=== PATIENT | male | born 1940 | race Caucasian/White ===

== ENCOUNTER 2017-01-14 07:59 | Inpatient (IN) | payer MEDICARE ==
[2017-01-14] MEDS ORDERED: Aspirin Low Dose CHEW TAB* 81 MG PO ONE (08:06)
[2017-01-14] MEDS ORDERED: NS 0.9% 1000 ML* 1,000 ML IV ONE (08:07)
[2017-01-14] MEDS ORDERED: Diltiazem IV* 5 MG/ML 5 ML VIAL (for loading dose/IV Push) (25 MG) IV SLOW PU ONE (08:20)
[2017-01-14] MEDS ORDERED: Diltiazem IV VIAL* 125 MG in D5W 100 ML BAG* 100 ML IV ONE (08:20)
--- NOTE | 2017-01-14 08:33 | RAD ---
HISTORY: Chest pain COMPARISONS: October 06, 2005 VIEWS:1: Single frontal portable view of the chest at 8:20 AM FINDINGS: LINES AND TUBES: None. CARDIOMEDIASTINAL SILHOUETTE: The cardiomediastinal silhouette is normal for portable technique. PLEURA: The costophrenic angles are sharp. No pleural abnormalities are noted. LUNG PARENCHYMA: The lungs are clear. ABDOMEN: The upper abdomen is clear. There is no subphrenic gas. BONES AND SOFT TISSUES: No bone or soft tissue abnormalities are noted. IMPRESSION: NO ACTIVE CARDIOPULMONARY DISEASE.
[2017-01-14 08:34] LABS: Hematocrit 46 % (42-52); Hemoglobin 15.9 g/dl (14.0-18.0); Mean Corpuscular HGB Conc 35 g/dl (31-36); Mean Corpuscular Hemoglobin 31 pg (27-31); Mean Corpuscular Volume 91 fL (80-94); Mean Platelet Volume 10 um3 (7.4-10.4); Red Blood Count 5.06 10^6/ul (4.0-5.4); Red Cell Distribution Width 13 % (10.5-15); White Blood Count 13.3 10^3/ul (3.5-10.8)
[2017-01-14] MEDS ORDERED: Diltiazem IV VIAL* 125 MG/25 ML VIAL ONE (08:37)
[2017-01-14 08:52] LABS: Albumin 4.3 g/dL (3.2-5.2); BUN/Creatinine Ratio 15.9 (8-20); Calcium 9.6 mg/dL (8.6-10.3); EGFR African American 86.9 (>60); EGFR Non-African American 67.6 (>60); Globulin 3.3 g/dL (2-4); Potassium 3.8 mmol/L (3.5-5.0); Total Bilirubin 1.5 mg/dL (0.2-1.0); Total Protein 7.6 g/dL (6.4-8.9)
[2017-01-14 09:44] LABS: TSH (Thyroid Stimulating Horm) 1.87 mcIU/mL (0.34-5.60)
--- NOTE | 2017-01-14 09:47 | ED ---
Tony Mukherjee Anna, scribed for Caitie Osborn MD on 01/14/17 at 0817 . HPI Chest Pain - HPI Summary HPI Summary: Patient is a y/o male coming to [facility] presenting with intermittent right-sided chest pressure that began a few days ago. The pain was worse beginning last night. He was not able to sleep last night because of the pain. The pain is described as severity 8/10 and sometimes radiating to the right side of his neck. The pain is somewhat alleviated by belching. He has not had pain like this before. He denies Hx of heart attack. These symptoms do not feel similar to his GERD, which normally does not extend into his chest. He says his heart does not feel fast, and he has no history of atrial fibrillation. - History of Current Complaint Chief Complaint: EDChestPainROMI Time Seen by Provider: 01/14/17 08:06 Hx Obtained From: Patient, Family/Tick Sewer - Accompanied by family Onset/Duration: Started Days Ago, Still Present Pain Intensity: 8 Pain Scale Used: 0-10 Numeric Chest Pain Radiates: Yes Chest Pain Radiates To:: Neck - right side of neck Alleviating Factor(s): Other: - belching - Allergy/Home Medications Allergies/Adverse Reactions: Allergies Allergy/AdvReac Type Severity Reaction Status Date / Time No Known Allergies Allergy Verified 01/14/17 08:01 PMH/Surg Hx/FS Hx/Imm Hx Cardiovascular History: Reports: Hx Coronary Artery Disease - MILD, BLOCKAGE, ON MEDS, Hx Hypercholesterolemia, Hx Hypertension Denies: Other Cardiovascular Problems/Disorders Respiratory History: Denies: Other Respiratory Problems/Disorders GI History: Reports: Hx Ulcer - 1983, HAD PARTIAL STOMACH REMOVED Musculoskeletal History: Denies: Other Musculoskeletal History Sensory History: Reports: Hx Contacts or Glasses - GLASSES Denies: Hx Hearing Aid Opthamlomology History: Reports: Hx Contacts or Glasses - GLASSES Neurological History: Denies: Other Neuro Impairments/Disorders - Surgical History Surgery Procedure, Year, and Place: 1983, [place] [facility] [place] 2 [place]IAL [place], 02[place]2012, [place] [facility] [place] Anesthesia Reactions: No Infectious Disease History: No Infectious Disease History: Denies: Traveled Outside the [place] in Last 30 Days - Family History Known Family History: Positive: Hypertension - Social History Occupation: Retired Lives: Alone Alcohol Use: None Substance Use Type: Reports: None Smoking Status (MU): Never Smoked Tobacco Review of Systems Positive: Chest Pain - pressure Positive: Arthralgia - right neck pain All Other Systems Reviewed And Are Negative: Yes Physical Exam Triage Information Reviewed: Yes Vital Signs On Initial Exam: Initial Vitals Temp Pulse Resp BP Pulse Ox 99.3 F 126 18 133/108 97 01/14/17 08:01 01/14/17 08:01 01/14/17 08:01 01/14/17 08:01 01/14/17 08:01 Vital Signs Reviewed: Yes Appearance: Positive: Well-Appearing, No Pain Distress Skin: Positive: Warm, Skin Color Reflects Adequate Perfusion, Dry Eyes: Positive: EOMI, RESHMA ENT: Positive: Pharynx normal, TMs normal Neck: Positive: Supple, Nontender Respiratory/Lung Sounds: Positive: Clear to Auscultation, Breath Sounds Present. Negative: Rales, Rhonchi, Wheezes Cardiovascular: Positive: IRR. Negative: Murmur, Rub, Other - gallop Abdomen Description: Positive: Nontender, Soft. Negative: Distended, Guarding, Other: - rebound Bowel Sounds: Positive: Present Musculoskeletal: Positive: Strength/ROM Intact. Negative: Edema Left, Edema Right Neurological: Positive: Sensory/Motor Intact, Alert, Oriented to Person Place, Time, CN Intact II-III - II-XII Psychiatric: Positive: Affect/Mood Appropriate Diagnostics - Vital Signs Vital Signs Temp Pulse Resp BP Pulse Ox 01/14/17 08:01 99.3 F 126 18 133/108 97 - Laboratory Lab Results: Lab Results 01/14/17 01/14/17 01/14/17 Range/Units 08:15 08:15 08:15 WBC 13.3 H (3.5-10.8) 10^3/ul RBC 5.06 (4.0-5.4) 10^6/ul Hgb 15.9 (14.0-18.0) g/dl Hct 46 (42-52) % MCV 91 (80-94) fL MCH 31 (27-31) pg MCHC 35 (31-36) g/dl RDW 13 (10.5-15) % Plt Count 180 (150-450) 10^3/ul MPV 10 (7.4-10.4) um3 Neut % (Auto) 76.9 (38-83) % Lymph % (Auto) 11.2 L (25-47) % [place] % (Auto) 11.1 H (1-9) % Eos % (Auto) 0.3 (0-6) % Baso % (Auto) 0.5 (0-2) % Absolute Neuts (auto) 10.2 H (1.5-7.7) 10^3/ul Absolute Lymphs (auto) 1.5 (1.0-4.8) 10^3/ul Absolute Monos (auto) 1.5 H (0-0.8) 10^3/ul Absolute Eos (auto) 0 (0-0.6) 10^3/ul Absolute Basos (auto) 0.1 (0-0.2) 10^3/ul Absolute Nucleated RBC 0.01 10^3/ul Nucleated RBC % 0.1 Sodium 133 (133-145) mmol/L Potassium 3.8 (3.5-5.0) mmol/L Chloride 101 (101-111) mmol/L Carbon Dioxide 23 (22-32) mmol/L Anion Gap 9 (2-11) mmol/L BUN 17 (6-24) mg/dL Creatinine 1.07 (0.67-1.17) mg/dL Est GFR ( Amer) 86.9 (>60) Est GFR (Non-Af Amer) 67.6 (>60) BUN/Creatinine Ratio 15.9 (8-20) Glucose 152 H (70-100) mg/dL Lactic Acid 1.1 (0.5-2.0) mmol/L Calcium 9.6 (8.6-10.3) mg/dL Magnesium Pending Total Bilirubin 1.50 H (0.2-1.0) mg/dL AST 29 (13-39) U/L ALT 22 (7-52) U/L Alkaline Phosphatase 104 (34-104) U/L Troponin I 0.00 (<0.04) ng/mL Total Protein 7.6 (6.4-8.9) g/dL Albumin 4.3 (3.2-5.2) g/dL Globulin 3.3 (2-4) g/dL Albumin/Globulin Ratio 1.3 (1-3) TSH 1.87 (0.34-5.60) mcIU/mL Result Diagrams: 01/14/17 08:15 01/14/17 08:15 Lab Statement: Any lab studies that have been ordered have been reviewed, and results considered in the medical decision making process. - Radiology CXR Xray Interpretation: No Acute Changes Radiology Interpretation Completed By: Radiologist - IMPRESSION: NO ACTIVE CARDIOPULMONARY DISEASE. - EKG 0808 Cardiac Rate: Tachycardia - 121 bpm EKG Rhythm: Atrial Fibrillation EKG Interpretation: Mild, non-specific T-wave changes EKG Comparison: Other - No old EKG available for comparison. Re-Evaluation - Re-Evaluation First Eval Re-Evaluation Time: 08:57 Comment: Discussed results and plan of care with patient. Patient agrees with plan. Chest Pain Course/Dx - Course Assessment/Plan: pt came in with right sided cp for 48 hours, in new rapid afib. Pt slowed down with diltiazem ok to be admitted by hospitalist group - Diagnoses Provider Diagnoses: Rapid atrial fibrillation, Chest pain - Provider Notifications Discussed Care Of Patient With: Dr. Joseph (hospitalist) at 0900. Agrees to accept patient for admission. Discharge - Discharge Plan Condition: Stable Disposition: ADMITTED TO [facility] documentation as recorded by the Tony daniels Anna accurately reflects the service I personally performed and the decisions made by me, Caitie Osborn MD.
[2017-01-14 09:52] LABS: Magnesium 2.2 mg/dL (1.9-2.7)
[2017-01-14] MEDS ORDERED: Diltiazem IV VIAL* 125 MG in D5W 100 ML BAG* 100 ML IV SCH ×3 (10:00→19:39)
[2017-01-14] MEDS ORDERED: Metoprolol Succinate XL TAB* 25 MG PO SCH (12:00)
[2017-01-14] MEDS ORDERED: Metoprolol Tartrate IV* 1 MG/ML 5 ML VIAL IV PRN (12:04)
[2017-01-14] MEDS ORDERED: Metoprolol Tartrate IV* 1 MG/ML 5 ML VIAL IV STA (12:07)
--- NOTE | 2017-01-14 12:18 | HP ---
CONTINUATION ADDENDUM NOW INCLUDED ON THIS REPORT HISTORY AND PHYSICAL: DATE OF ADMISSION: 01/14/17 TIME OF EVALUATION: 10:50 a.m. PRIMARY CARE PROVIDER: Dr. Currie. TOP LIFT NAILER: Dr. Quispe. CHIEF COMPLAINT: Chest pressure. HISTORY OF PRESENT ILLNESS: Mr. Guevara is a 76-year-old male with a past medical history of coronary artery disease, hypertension, hyperlipidemia, melanoma, peptic ulcer disease, status post partial gastrectomy, who presented to the emergency room with complaints of chest pressure. The patient states he was in his usual state of health until 3 days ago when he started to experience mild right-sided chest pressure. He states that initially it was 2/10 in intensity with no radiation and it resolved by itself. The patient is on a very intense gym regimen and he states that he was able to exercise with no problems three days ago. The chest pressure resolved and yesterday he went to the gym but noticed that he could not do his whole set. He was able to exercise with less weight, was still able to walk on the treadmill for 30 minutes but felt weak. Overnight, the chest pressure returned and at this time it was severe, 10/10 intensity, radiating to his neck associated with mild dyspnea and diaphoresis. He called his daughter and was brought into the emergency room for further evaluation. He denies fever, chills, palpitations, any other complaints. He has no recent trips. No recent trauma. PAST MEDICAL HISTORY: Coronary artery disease. As per records, he had the cardiac cath done in September 2005 that showed inferior hypokinesis and occluded non- dominant RCA, diffuse moderate disease of the LAD, moderate disease of the left circumflex and high marginal had 45% to 50% stenosis. CONTINUATION ADDENDUM: DATE OF ADMISSION: 01/14/17 PAST MEDICAL HISTORY: 1. Coronary artery disease. 2. Hypertension. 3. Hyperlipidemia. 4. History of peptic ulcer disease, status post partial gastrectomy in 1982 with upper GI bleed at that time but no further episodes of upper GI bleed for the past 30 years. 5. Melanoma, status post multiple skin lesions resection. MEDICATIONS: 1. Aspirin 81 mg p.o. daily. 2. Atorvastatin 80 mg p.o. daily. 3. Lisinopril 5 mg p.o. daily. 4. Metoprolol succinate 25 mg p.o. b.i.d. 5. Multivitamin 1 tablet p.o. daily. 6. Pantoprazole 40 mg p.o. daily. 7. Potassium chloride 20 mEq p.o. daily. ALLERGIES: No known drug allergy. FAMILY HISTORY: Father had coronary artery disease in his 70s. SOCIAL HISTORY: The patient was a smoker from age 17 to age 46. He smoked 1 pack per day. Alcohol, he has 1 to 2 alcoholic drinks a week. He denies drug use. He drinks 2 cups of regular coffee every day. Surrogate decision maker is his daughter, Holly Agrawal, phone number [phone]. REVIEW OF SYSTEMS: A 14-point review of systems was performed and all the pertinent negatives and positives are mentioned in the HPI. PHYSICAL EXAMINATION GENERAL: The patient is a pleasant elderly male, sitting up in bed in no acute distress. VITAL SIGNS: Temperature 100.1, respiratory rate 18, heart rate is 95, oxygen saturation is 95% on room air, blood pressure is 122/73. CHEST: Breath sounds present bilaterally with no added sounds. CVS: Normal S1, S2. Irregularly irregular, tachycardic. ABDOMEN: Soft with a midline surgical scar and other two smaller ones on the left lower quadrant. There is no tenderness on palpation. Bowel sounds are present. EXTREMITIES: No edema. NEUROLOGIC: He is alert, awake, oriented x3. Able to move all 4 extremities. DIAGNOSTIC STUDIES/LAB DATA: The patient had a CBC that showed WBC of 13.3, hemoglobin of 15.9, hematocrit of 46, platelets of 180, 76% neutrophils. Chemistry showed sodium of 133, potassium 3.8, chloride 101, bicarbonate 23, BUN 17, creatinine of 1.07, glucose of 152, lactic acid of 1.1. LFTs were normal except for a mild elevation of bilirubin at 1.5. First troponin is 0. TSH is 1.87. Chest x-ray showed no active cardiopulmonary disease. EKG done on 01/14/17 at 8 :08 showed atrial fibrillation at 121 beats per minute. There is no prior EKG to compare. ASSESSMENT AND PLAN: Mr. Guevara is a 76-year-old male with the past medical history of coronary artery disease, hypertension, hyperlipidemia, prior history of peptic ulcer disease, status post partial gastrectomy who presented to the emergency room with complaints of chest pressure and was found to be in atrial fibrillation with rapid ventricular rate. 1. Atrial fibrillation with rapid ventricular rate. The time of onset is unclear as the patient does not feel palpitations now, even though his heart rate can jump to 140s to 150s during our interview. He will be admitted to the telemetry floor. He will be continued on a Cardizem drip and a Cardiology consultation was requested with Dr. Quispe. An echocardiogram was ordered. After reviewing the risks and benefits, decision was made for anticoagulation with Lovenox at this point until further decision regarding cardioversion. The patient's CHADS2-VASc score is 3 (age, hypertension, history of myocardial infarction). 2. Hypertension. We will continue metoprolol and hold lisinopril for now to have more room for Cardizem drip. 3. Hyperlipidemia. We will continue atorvastatin but at a lower dose due to Cardizem. 4. DVT prophylaxis. The patient has a score of 2 on the DVT Prophylaxis Risk Assessment Guide and he is already started on Lovenox. 5. Code status is full. TIME SPENT: Approximately 60 minutes were spent with the patient and family interview, medical records review, physical examination to complete this admission and more than half of this time was spent [id number] with the patient and coordination of care. CC: Dr. Currie; Dr. Quispe* [id number]/[facility] #: [id number]/CPS #: [id number] AXEL
[2017-01-14] MEDS: Enoxaparin(*) 80 MG/0.8 ML SYR SUBCUT SCH (12:32)
[2017-01-14] MEDS: KCL 10 MEQ/50 ML IVPREMIX* 10 MEQ/50 ML BAG IV SCH ×2 (14:13→21:34)
[2017-01-14] MEDS ORDERED: Naloxone* 0.4 MG/ML 1 ML VIAL ONE (15:40)
[2017-01-14] MEDS ORDERED: Flumazenil* 0.1 MG/ML 5 ML MDV ONE (15:40)
[2017-01-14] MEDS ORDERED: fentaNYL* 50 MCG/ML 2 ML VIAL (100 MCG VIAL) ONE (15:40)
[2017-01-14] MEDS ORDERED: Midazolam* 1 MG/ML 5 ML VIAL (5 MG) ONE (15:40)
--- NOTE | 2017-01-14 15:43 | HP ---
HISTORY AND PHYSICAL:* ADDENDUM: DATE OF ADMISSION: 01/14/17 PAST MEDICAL HISTORY: 1. Coronary artery disease. 2. Hypertension. 3. Hyperlipidemia. 4. History of peptic ulcer disease, status post partial gastrectomy in 1982 with upper GI bleed at that time but no further episodes of upper GI bleed for the past 30 years. 5. Melanoma, status post multiple skin lesions resection. MEDICATIONS: 1. Aspirin 81 mg p.o. daily. 2. Atorvastatin 80 mg p.o. daily. 3. Lisinopril 5 mg p.o. daily. 4. Metoprolol succinate 25 mg p.o. b.i.d. 5. Multivitamin 1 tablet p.o. daily. 6. Pantoprazole 40 mg p.o. daily. 7. Potassium chloride 20 mEq p.o. daily. ALLERGIES: No known drug allergy. FAMILY HISTORY: Father had coronary artery disease in his 70s. SOCIAL HISTORY: The patient was a smoker from age 17 to age 46. He smoked 1 pack per day. Alcohol, he has 1 to 2 alcoholic drinks a week. He denies drug use. He drinks 2 cups of regular coffee every day. Surrogate decision maker is his daughter, Holly Agrawal, phone number [phone]. REVIEW OF SYSTEMS: A 14-point review of systems was performed and all the pertinent negatives and positives are mentioned in the HPI. PHYSICAL EXAMINATION GENERAL: The patient is a pleasant elderly male, sitting up in bed in no acute distress. VITAL SIGNS: Temperature 100.1, respiratory rate 18, heart rate is 95, oxygen saturation is 95% on room air, blood pressure is 122/73. CHEST: Breath sounds present bilaterally with no added sounds. CVS: Normal S1, S2. Irregularly irregular, tachycardic. ABDOMEN: Soft with a midline surgical scar and other two smaller ones on the left lower quadrant. There is no tenderness on palpation. Bowel sounds are present. EXTREMITIES: No edema. NEUROLOGIC: He is alert, awake, oriented x3. Able to move all 4 extremities. DIAGNOSTIC STUDIES/LAB DATA: The patient had a CBC that showed WBC of 13.3, hemoglobin of 15.9, hematocrit of 46, platelets of 180, 76% neutrophils. Chemistry showed sodium of 133, potassium 3.8, chloride 101, bicarbonate 23, BUN 17, creatinine of 1.07, glucose of 152, lactic acid of 1.1. LFTs were normal except for a mild elevation of bilirubin at 1.5. First troponin is 0. TSH is 1.87. Chest x-ray showed no active cardiopulmonary disease. EKG done on 01/14/17 at 8 :08 showed atrial fibrillation at 121 beats per minute. There is no prior EKG to compare. ASSESSMENT AND PLAN: Mr. Guevara is a 76-year-old male with the past medical history of coronary artery disease, hypertension, hyperlipidemia, prior history of peptic ulcer disease, status post partial gastrectomy who presented to the emergency room with complaints of chest pressure and was found to be in atrial fibrillation with rapid ventricular rate. 1. Atrial fibrillation with rapid ventricular rate. The time of onset is unclear as the patient does not feel palpitations now, even though his heart rate can jump to 140s to 150s during our interview. He will be admitted to the telemetry floor. He will be continued on a Cardizem drip and a Cardiology consultation was requested with Dr. Quispe. An echocardiogram was ordered. After reviewing the risks and benefits, decision was made for anticoagulation with Lovenox at this point until further decision regarding cardioversion. The patient's CHADS2-VASc score is 3 (age, hypertension, history of myocardial infarction). 2. Hypertension. We will continue metoprolol and hold lisinopril for now to have more room for Cardizem drip. 3. Hyperlipidemia. We will continue atorvastatin but at a lower dose due to Cardizem. 4. DVT prophylaxis. The patient has a score of 2 on the DVT Prophylaxis Risk Assessment Guide and he is already started on Lovenox. 5. Code status is full. TIME SPENT: Approximately 60 minutes were spent with the patient and family interview, medical records review, physical examination to complete this admission and more than half of this time was spent [id number] with the patient and coordination of care. [id number]/[facility] #: [id number] AXEL
[2017-01-14] MEDS ORDERED: Ketorolac INJ* 30 MG/ML 1 ML VIAL ONE (15:59)
--- NOTE | 2017-01-14 16:26 | CONS ---
CC: Dr. Currie; Lloyd Quispe MD CONSULTATION REPORT: DATE OF CONSULTATION: 01/14/17 CONSULTING PHYSICIAN: Dr. Cuadra. REASON FOR EVALUATION: AFib. HISTORY OF PRESENT ILLNESS: This is a very pleasant 76-year-old gentleman who is known to me from previous evaluations. He has a longstanding history of coronary artery disease, hypertension, hyperlipidemia. He has been very active and exercising, was in his usual state of health until about 2 days ago. He noted intermittent achiness in his right chest, which was not associated with diaphoresis but was associated with some gas. No relief with passing gas. He states it could occur at rest, when sitting and would last for up to an hour at a time. He said he tried to do his treadmill exercises which is a standard activity for him. He said he slowed his pace and did up to 35 minutes yesterday. Normally he walks at highest setting and higher inclination, but he did at a slower pace. He stated he went to bed last night, was still having the symptoms. He woke up this morning, was having symptoms, called his daughter and they came to the emergency room and he was found to be in AFib with a rapid ventricular response. He was started on IV diltiazem. He states he feels better, but he still has some mild persistent discomfort. He said his troponin first drawn was 0. He denies associated shortness of breath or diaphoresis. No change with position. No hematemesis, hematochezia. No fevers , chills, or sweats. Up until 2 days ago, he was exercising regularly, doing treadmill work for 30 minutes at a time most days and going to the [employer] and doing exercises and weight machines for 2 times a week. He states normally he gets heart rate up to about the 114 range with exercise on the treadmill. PAST MEDICAL HISTORY: His past medical history includes coronary artery disease. He had a cardiac catheterization done in September 2005, which showed inferior hypokinesis and occluded non-dominant right diffuse LAD, moderate disease, left circumflex with moderate disease and high marginal with moderate disease 45% to 50%. In March 2006, he had anterior lateral wall ischemia by nuclear stress test. He had a stress test in November 2010 and at that time was able to complete 9 minutes of a Fredy to 104% max predicted, peak blood pressure 185/83, he had 1 to [address] depressions inferiorly in V6. Peak heart rate, which recovered within 2 minutes. He has been managed medically and has done well. He also has a history of hypertension, hyperlipidemia, tobacco use discontinued 30 years ago. He denies asthma, emphysema. Denies any allergies. PAST SURGICAL HISTORY: Includes ulcer surgery for gastric resection, 1982. He is . He has 3 adult children, 2 daughters Yamilka and Natividad who accompany him and 1 son. He drinks 2 cups of coffee a day and he has 1 mixed drink about once or twice a month. He was retired from the [employer]. He retired about 10 years ago. ROS x 10 negative except as above. PHYSICAL EXAM: He is a well-developed, well-nourished gentleman in no apparent distress. Heart rate was irregularly irregular and varied from the 90s to the 120s. Blood pressure 122/73. Atraumatic, normocephalic. Extraocular muscles intact. Sclerae anicteric. No significant JVD. No cervical adenopathy or thyromegaly. Cardiac Exam: S1, S2 with a soft 1 to 2/6 holosystolic murmur at the left lower sternal border. Chest was clear. No CVAT. There were bandages where he had recent skin lesion resected. Abdomen: Bowel sounds present. Nontender. Femoral pulses are intact without bruits. Distal pulses are intact without edema. Motor strength 5/5 bilaterally. Deep tendon reflexes are 2/4. Alert and oriented x3. DIAGNOSTIC STUDIES/LAB DATA: EKG revealed atrial fibrillation with a rapid ventricular response with small Q-waves inferiorly, possible inferior ND, old inferior ND and ST depression, T-wave inversions in 2, 3 and F. Labs include white count mildly elevated at 13.3, hematocrit of 46, platelet count 180. Sodium 133, potassium is 3.8, BUN is 70, creatinine of 1.07. Troponin 0.0 and then 0.01. Chest x-ray is negative. IMPRESSION AND PLAN: My impression is that Mr. Guevara has history of coronary disease, hypertension, hyperlipidemia, now has 2 days of unclear symptoms and found to be in atrial fibrillation. Onset is based on his vital signs calculations and heart rates, it seems as though it started about 2 days ago. We did discuss at length the diagnosis and implications including potential risk for stroke and poor heart rate control. We also explained the importance of screening for other possible causes including progression of his LV dysfunction and ischemic heart disease. For the time being, I recommend the followin. I suggest to continue rate control with IV diltiazem and perhaps adding IV Lopressor as needed. 2. He is to remain n.p.o. for possible KALLIE-guided cardioversion later today. He finished breakfast a little before 11, so we will have to wait until late afternoon. 3. He is to avoid caffeine and alcohol, which may lower the threshold for this. We will try to replace the potassium and maintain it over 4. 4. We will consider obtaining outpatient stress test if his troponins remain negative as they are. 5. Further recommendations will depend upon his clinical course. He understands that the range of options for treatment of his atrial fibrillation range from conservative management with just rate control versus attempted cardioversion versus need for pacemaker for tachy-gabby syndrome as well as more advanced interventions. [id number]/[facility] #: [id number] AXEL
--- NOTE | 2017-01-14 17:17 | CONS ---
CONSULTATION NOTE: ADDENDUM: DATE OF CONSULTATION: 01/14/17 MEDICATIONS: As an inpatient, he is on IV diltiazem at 15 mL an hour and he is on metoprolol 25 mg b.i.d. of the long acting. As an inpatient, he is also on Lovenox 70 mg subcu q.12, atorvastatin 40 mg a day, aspirin 81 mg a day, omeprazole 20 mg a day, potassium 20 mEq daily. Review of systems x10 was negative except as above. He also did not have recent travel, leg edema or injuries. [id number]/[facility] #: [id number] [facility]
[2017-01-14] MEDS ORDERED: Metoprolol Tartrate IV* 1 MG/ML 5 ML VIAL ONE (17:33)
[2017-01-14] MEDS ORDERED: Amiodarone IV VIAL* 3 ML ONE (17:37)
[2017-01-14] MEDS ORDERED: D5W 100 ML BAG* 100 ML ONE (20:15)
--- NOTE | 2017-01-14 20:18 | TEE ---
Patient: TREY DANIELS [facility] Rec#: [id number] : 1940 Date: 01/14/2017 Age: 76y Height: 160 cm / 63.0 in Weight: 70.3 kg / 154.9 lbs Sex: M BSA: 1.7 Room#: 434 Admit Date#: 01/14/2017 Type: Inpatient Referring: Lloyd Quispe MD Performing: Lloyd Quispe MD Reading: Lloyd Quispe MD Master Sheet Clerk: Micheline Atkins RN RDCS Nurse: Pranav Hernandez RN CC: Leonard Currie MD Transesophageal Echocardiogram Indication: Atrial fibrillation BP: 109/66 HR: 109 Rhythm: A-Fib Findings History: CAD, HTN, HLD Technical Comments: The study quality is fair. Left Ventricle: The left ventricular chamber size is normal. Global left ventricular wall motion and contractility are within normal limits. There is normal left ventricular systolic function. The estimated ejection fraction is 55-60%. Left Atrium: The left atrium is mildly dilated. No thrombus is visualized within the left atrium. There is no thrombus visualized in the left atrial appendage. Right Ventricle: The right ventricular cavity size is normal. The right ventricular global systolic function is normal. Right Atrium: The right atrial cavity size is normal. A prominent eustachian valve is noted in the right atrium. A patent foramen ovale is not demonstrated by color Doppler. No bubble study performed. Aortic Valve: The aortic valve is trileaflet. The aortic valve leaflets are mildly thickened. There is no evidence of aortic regurgitation. There is no evidence of aortic stenosis. Mitral Valve: The mitral valve leaflets are mildly thickened. There is mild mitral regurgitation. There is no evidence of mitral stenosis. Tricuspid Valve: The tricuspid valve leaflets are normal. There is mild tricuspid regurgitation. Pulmonic Valve: The pulmonic valve structure is not well visualized. There is trace to mild pulmonic regurgitation. Pericardium: There is no significant pericardial effusion. Aorta: There is no dilatation of the ascending aorta. There is mild dilatation of the aortic root. Pulmonary Artery: The main pulmonary artery is not well visualized. Venous: The bicaval view was obtained and appears normal. The pulmonary veins appear normal. The LUPV was well visualized and interrogated with Doppler. KALLIE Procedures: The procedure was abbreviated due to the patient's medical condition. Transgastric and aortic views were not obtained due to the patient's gagging. History and physical as well as labs were reviewed. The patient was in a fasting state. Risks and benefits of the procedure, including alternatives, were discussed and written informed consent was obtained. The patient and/or their health care advertising account representative expressed understanding of the procedure, risks and benefits. Baseline and continuous monitoring of blood pressure, heart rate, pulse oximetry and heart rhythm was performed throughout the procedure. The appropriate time-out procedure was performed as per [facility] protocol. The patient was placed in the left lateral decubitus position. The patient received IV Midazolam with a total dose of 4 mg. The patient received IV Fentanyl with a total dose of 25 mcg. The multiplane transesophageal echocardiogram probe was inserted through the posterior oropharynx and advanced into the esophagus without difficulty. Multiple 2D images were obtained of the heart and its related structures. Color flow Doppler was used for evaluation. Spectral Doppler was also used. The atrial septum was interrogated with color flow Doppler. At the conclusion of the procedure the probe was removed with continuous suction without complications. The patient tolerated the procedure with no apparent complications. Conclusions The estimated ejection fraction is 55-60%. The left atrium is mildly dilated.. There is no thrombus visualized in the left atrial appendage. The aortic valve leaflets are mildly thickened. There is mild mitral regurgitation. There is mild tricuspid regurgitation. There is trace to mild pulmonic regurgitation. Measurements Name Value Normal Range Aortic Annulus 2.3 cm (1.4 - 2.6) Ao root diameter (2D) 3.6 cm (2.1 - 3.5) Ascending Ao 2.6 cm (2.1 - 3.4) Name Value Normal Range MV E-wave Vmax 1.1 m/sec - MV deceleration time 111 msec -
[2017-01-14] MEDS: Sotalol TAB* 80 MG PO SCH (20:24)
[2017-01-14] MEDS: Atorvastatin* 40 MG TAB PO SCH (20:25)
[2017-01-14] MEDS ORDERED: Potassium Chloride LIQUID* 20 MEQ PACKET PO ONE (20:31)
[2017-01-15] MEDS: Acetaminophen TAB* 325 MG PO PRN (00:01)
[2017-01-15] MEDS: Enoxaparin(*) 80 MG/0.8 ML SYR SUBCUT SCH ×3 (00:04→22:51)
[2017-01-15 02:06] LABS: Urine Bacteria Absent (Absent); Urine Bilirubin Negative (Negative); Urine Glucose Negative (Negative); Urine Nitrite Negative (Negative)
[2017-01-15 06:50] LABS: BUN/Creatinine Ratio 21.8 (8-20); Calcium 8.7 mg/dL (8.6-10.3); EGFR African American 76.9 (>60); EGFR Non-African American 59.8 (>60); Magnesium 2.1 mg/dL (1.9-2.7); Potassium 4.5 mmol/L (3.5-5.0)
[2017-01-15] MEDS ORDERED: Diltiazem IV VIAL* 125 MG in D5W 100 ML BAG* 100 ML IV SCH (07:15)
[2017-01-15] MEDS: Potassium Chloride LIQUID* 20 MEQ PACKET PO SCH (07:33)
[2017-01-15] MEDS: Sotalol TAB* 80 MG PO SCH ×2 (07:34→22:54)
[2017-01-15] MEDS: Aspirin Low Dose CHEW TAB* 81 MG PO SCH (07:34)
[2017-01-15] MEDS: Omeprazole CAP* 20 MG PO SCH (07:35)
[2017-01-15 07:57] LABS: Hematocrit 44 % (42-52); Hemoglobin 14.8 g/dl (14.0-18.0); Mean Corpuscular HGB Conc 34 g/dl (31-36); Mean Corpuscular Hemoglobin 31 pg (27-31); Mean Corpuscular Volume 91 fL (80-94); Mean Platelet Volume 9 um3 (7.4-10.4); Red Blood Count 4.79 10^6/ul (4.0-5.4); Red Cell Distribution Width 13 % (10.5-15); White Blood Count 16.6 10^3/ul (3.5-10.8)
[2017-01-15 07:58] LABS: Comments Flag Yes
[2017-01-15 07:59] LABS: Add Diff/Slide Review? Slide Review Added
[2017-01-15] MEDS ORDERED: Metoprolol Succinate XL TAB* 25 MG PO SCH (09:00)
[2017-01-15] MEDS ORDERED: NS 0.9% 500 ML BAG* 500 ML IV SCH (10:00)
--- NOTE | 2017-01-15 14:31 | PN ---
Subjective Date of Service: 01/15/17 Interval History: HOSPITALIST PROGRESS NOTE Patient seen and examined at bedside. He feels better this AM since his HR has been better controlled. No more right sided chest pressure. Denies dyspnea. Family History: Unchanged from Admission Social History: Unchanged from Admission Past Medical History: Unchanged from Admission Objective Active Medications: Acetaminophen (Tylenol Tab*) 650 mg PO Q6H PRN PRN Reason: Pain or fever Last Admin: 01/15/17 00:01 Dose: 650 mg Aspirin (Aspirin Low Dose Tab*) 81 mg PO DAILY [facility] Last Admin: 01/15/17 07:34 Dose: 81 mg Atorvastatin Calcium (Lipitor*) 40 mg PO 2100 [facility] Last Admin: 01/14/17 20:25 Dose: 40 mg Enoxaparin Sodium (Lovenox(*)) 70 mg SUBCUT Q12H [facility] Last Admin: 01/15/17 10:37 Dose: 70 mg Metoprolol Tartrate (Lopressor Iv*) 2.5 mg IV Q5M PRN PRN Reason: NOT SPECIFIED Omeprazole (Prilosec Cap*) 20 mg PO DAILY [facility] Last Admin: 01/15/17 07:35 Dose: 20 mg Potassium Chloride (Klor-Con Liquid*) 20 meq PO DAILY [facility] Last Admin: 01/15/17 07:33 Dose: 20 meq Sotalol HCl (Betapace Tab*) 80 mg PO 0800,1999 [facility] Last Admin: 01/15/17 07:34 Dose: 80 mg Vital Signs 01/15/17 01/15/17 09:00 11:12 Temperature 98.3 F Pulse Rate 47 57 Respiratory 21 22 Rate Blood Pressure 105/69 120/70 (mmHg) O2 Sat by Pulse 95 98 Oximetry Oxygen Devices in Use Now: None Appearance: Pleasant elderly male sitting up in bed, eating breakfast in NAD. Eyes: No Scleral Icterus Ears/Nose/Mouth/Throat: Mucous Membranes Moist Neck: Trachea Midline Respiratory: Symmetrical Chest Expansion and Respiratory Effort, Clear to Auscultation Cardiovascular: RRR - Normal S1 and S2 Abdominal: NL Sounds; No Tenderness; No Distention Extremities: No Edema Neurological: Alert and Oriented x 3, NL Muscle Strength and Tone Lines/Tubes/Other Access: Clean, Dry and Intact Peripheral IV Nutrition: Taking PO's Result Diagrams: 01/15/17 07:46 01/15/17 05:24 Assess/Plan/Problems-Billing Assessment: Mr. Guevara is a 76yo M with PMH of CAD, HTN, HLD, melanoma, PUD s/p partial gastrectomy >30years ago, who presented with c/o chest pressure, found to be in Afib with RVR. - Patient Problems (1) Sepsis Comment: - Patient did not meet sepsis criteria on admission, but had leukocytosis and later on developed fever. - Source is likely viral pericarditis. (2) Viral pericarditis Comment: - Patient converted to sinus rhythm today and his EKG now clearly shows diffuse ST elevation suggestive of pericarditis, likely viral. - Continue supportive care. (3) Atrial fibrillation Comment: - Failed KALLIE CV yesterday, but converted this AM, after Sotalol dose. - Continue to monitor. - AC with Lovenox for now. (4) CAD (coronary artery disease) Comment: - Serial troponins are negative. - Plan for stress test early next week. - Continue Aspirin and Atorvastatin. (5) HTN (hypertension) Comment: - BP on the lower side - continue to monitor. (6) DVT prophylaxis Comment: - Lovenox. (7) Full code status Status and Disposition: Inpatient.
[2017-01-15] MEDS ORDERED: Sotalol TAB* 80 MG PO ONE (22:00)
[2017-01-15] MEDS: Atorvastatin* 40 MG TAB PO SCH (22:50)
[2017-01-16] MEDS ORDERED: Sotalol TAB* 80 MG PO ONE (05:00)
[2017-01-16 05:16] LABS: Hematocrit 39 % (42-52); Hemoglobin 13.3 g/dl (14.0-18.0); Mean Corpuscular HGB Conc 34 g/dl (31-36); Mean Corpuscular Hemoglobin 31 pg (27-31); Mean Corpuscular Volume 91 fL (80-94); Mean Platelet Volume 9 um3 (7.4-10.4); Red Blood Count 4.28 10^6/ul (4.0-5.4); Red Cell Distribution Width 13 % (10.5-15); White Blood Count 12.4 10^3/ul (3.5-10.8)
[2017-01-16 05:32] LABS: BUN/Creatinine Ratio 22.1 (8-20); C Reactive Protein 139.92 mg/L (< 5.00); Calcium 8.7 mg/dL (8.6-10.3); EGFR African American 99.7 (>60); EGFR Non-African American 77.5 (>60); Potassium 4.3 mmol/L (3.5-5.0)
[2017-01-16 05:33] LABS: Troponin I 0.02 ng/mL (<0.04)
[2017-01-16] MEDS: Potassium Chloride LIQUID* 20 MEQ PACKET PO SCH (07:35)
[2017-01-16] MEDS: Sotalol TAB* 80 MG PO SCH ×2 (07:35→20:42)
[2017-01-16] MEDS: Omeprazole CAP* 20 MG PO SCH (07:35)
[2017-01-16] MEDS: Aspirin Low Dose CHEW TAB* 81 MG PO SCH (07:35)
[2017-01-16] MEDS ORDERED: Enoxaparin(*) 80 MG/0.8 ML SYR ONE (11:42)
[2017-01-16] MEDS: Enoxaparin(*) 80 MG/0.8 ML SYR SUBCUT SCH (11:47)
--- NOTE | 2017-01-16 13:37 | PN ---
Subjective Date of Service: 01/16/17 Interval History: HOSPITALIST PROGRESS NOTE Patient seen and examined at bedside. He feels well this AM. Denies chest pain, palpitations, or dyspnea. Family History: Unchanged from Admission Social History: Unchanged from Admission Past Medical History: Unchanged from Admission Objective Active Medications: Acetaminophen (Tylenol Tab*) 650 mg PO Q6H PRN PRN Reason: Pain or fever Last Admin: 01/15/17 00:01 Dose: 650 mg Aspirin (Aspirin Low Dose Tab*) 81 mg PO DAILY [facility] Last Admin: 01/16/17 07:35 Dose: 81 mg Atorvastatin Calcium (Lipitor*) 40 mg PO 2100 [facility] Last Admin: 01/15/17 22:50 Dose: 40 mg Metoprolol Tartrate (Lopressor Iv*) 2.5 mg IV Q5M PRN PRN Reason: NOT SPECIFIED Omeprazole (Prilosec Cap*) 20 mg PO DAILY [facility] Last Admin: 01/16/17 07:35 Dose: 20 mg Potassium Chloride (Klor-Con Liquid*) 20 meq PO DAILY [facility] Last Admin: 01/16/17 07:35 Dose: 20 meq Sotalol HCl (Betapace Tab*) 80 mg PO 799,1999 [facility] Last Admin: 01/16/17 07:35 Dose: 80 mg Vital Signs 01/16/17 01/16/17 01/16/17 07:38 07:52 10:08 Temperature 97.4 F Pulse Rate 97 102 Respiratory 16 16 20 Rate Blood Pressure 133/78 134/82 (mmHg) O2 Sat by Pulse 96 98 Oximetry Oxygen Devices in Use Now: None Appearance: Pleasant elderly male lying in bed in [facility]. Eyes: No Scleral Icterus Ears/Nose/Mouth/Throat: Mucous Membranes Moist Neck: Trachea Midline Respiratory: Symmetrical Chest Expansion and Respiratory Effort, Clear to Auscultation Cardiovascular: NL Sounds; No Murmurs; No JVD, RRR Abdominal: NL Sounds; No Tenderness; No Distention Extremities: No Edema Neurological: Alert and Oriented x 3, NL Muscle Strength and Tone Lines/Tubes/Other Access: Clean, Dry and Intact Peripheral IV Nutrition: Taking PO's Result Diagrams: 01/16/17 05:09 01/16/17 05:09 Assess/Plan/Problems-Billing Assessment: Mr. Guevara is a 76yo M with PMH of CAD, HTN, HLD, melanoma, PUD s/p partial gastrectomy >30years ago, who presented with c/o chest pressure, found to be in Afib with RVR. - Patient Problems (1) Sepsis Comment: - Patient did not meet sepsis criteria on admission, but had leukocytosis and later on developed fever. - Source is likely viral pericarditis. (2) Viral pericarditis Comment: - Patient converted to sinus rhythm today and his EKG now clearly shows diffuse ST elevation suggestive of pericarditis, likely viral. - Continue supportive care. (3) Atrial fibrillation Comment: - Failed KALLIE CV, but converted with Sotalol yesterday, but now back in Afib. - Continue to monitor. - Had a 6.14s pause earlier today - will likely need pacer. Lovenox on hold for procedure. (4) CAD (coronary artery disease) Comment: - Serial troponins are negative. - Plan for stress test early next week. - Continue Aspirin and Atorvastatin. (5) HTN (hypertension) Comment: - Controlled. (6) DVT prophylaxis Comment: - Lovenox on hold for possible pacer tomorrow. - SCDs. (7) Full code status Status and Disposition: Inpatient.
[2017-01-16] MEDS: Metoprolol Tartrate IV* 1 MG/ML 5 ML VIAL IV PRN ×2 (16:22→16:36)
[2017-01-16] MEDS: Atorvastatin* 40 MG TAB PO SCH (20:42)
--- NOTE | 2017-01-17 03:49 | CARD ---
CARDIOLOGY PROCEDURE NOTE: DATE OF PROCEDURE: 01/14/17 - ROOM #434 PROCEDURE: KALLIE cardioversion. REASON FOR PROCEDURE: Atrial fibrillation. INDICATIONS: This is a very pleasant 76-year-old gentleman with a longstanding history of coronary disease and hypertension. He was admitted with a sense of feeling poorly and some right-sided chest pain, ruled out, but he was found to have atrial fibrillation with a rapid ventricular response. Informed consent was obtained. The patient was in the fasting state. A transesophageal echocardiogram was performed, which revealed no evidence of intracardiac thrombus. He received 4 mg of Versed and 25 mcg of Fentanyl for that procedure. After that he was given an additional 2 mg of Versed and underwent an attempted cardioversion as follows: 1. Synchronized biphasic shock of 120 joules without conversion. 2. After the first cardioversion attempt, the patient was given 5 mg of Lopressor and an additional shock of 200 joules biphasic without successful conversion. 3. The patient was then given amiodarone 150 mg IV over 10 minutes and a third shock of 200 joules was administered without success with conversion to atrial flutter with a rapid ventricular response. 4. A fourth shock of 200 joules biphasic was given and transiently returned to sinus rhythm but then went back into atrial flutter. IMPRESSION: The patient was unable to maintain sinus rhythm despite 4 attempts at cardioversion using IV Lopressor and IV amiodarone. PLAN: The results were discussed at length with the family members who were in the waiting room and the plan is as follows: 1. He is to return to the telemetry robbins. 2. He will continue IV diltiazem and p.o. Lopressor as needed to control his heart rate. 3. We will attempt load of sotalol 80 mg b.i.d. 4. If he fails to convert, we will consider a repeat attempt at cardioversion next week. [id number]/[facility] #: [id number] AXEL
[2017-01-17 06:24] LABS: BUN/Creatinine Ratio 17.8 (8-20); EGFR African American 92.9 (>60); EGFR Non-African American 72.2 (>60); Potassium 3.9 mmol/L (3.5-5.0)
[2017-01-17 06:25] LABS: Troponin I 0.03 ng/mL (<0.04)
[2017-01-17] MEDS ORDERED: ceFAZolin VIAL(*) 1 GM in NS 0.9% 50 ML* 50 ML IVPB ONE (08:53)
[2017-01-17] MEDS ORDERED: CEFAZOLIN IVPB ONE (08:53)
[2017-01-17] MEDS ORDERED: SODIUM CHLORIDE IVPB ONE (08:53)
[2017-01-17] MEDS ORDERED: ceFAZolin 2 GM PREMIX(*) 2 GM/50 ML BAG IVPB ONE (08:53)
[2017-01-17] MEDS: Potassium Chloride LIQUID* 20 MEQ PACKET PO SCH (09:23)
[2017-01-17] MEDS: Omeprazole CAP* 20 MG PO SCH (09:23)
[2017-01-17] MEDS: Aspirin Low Dose CHEW TAB* 81 MG PO SCH (09:23)
[2017-01-17] MEDS: NS 0.9% 1000 ML* 1,000 ML IV SCH ×2 (09:23→19:14)
[2017-01-17] MEDS: Sotalol TAB* 80 MG PO SCH ×2 (09:43→21:28)
[2017-01-17] MEDS ORDERED: Lidocaine 1% INJ* 10 MG/ML 30 ML SDV ONE (10:45)
[2017-01-17] MEDS ORDERED: Flumazenil* 0.1 MG/ML 5 ML MDV ONE (11:06)
[2017-01-17] MEDS ORDERED: Midazolam* 1 MG/ML 5 ML VIAL (5 MG) ONE (11:06)
[2017-01-17] MEDS ORDERED: fentaNYL* 50 MCG/ML 2 ML VIAL (100 MCG VIAL) ONE (11:06)
[2017-01-17] MEDS ORDERED: Naloxone* 0.4 MG/ML 1 ML VIAL ONE (11:06)
[2017-01-17] MEDS ORDERED: Metoprolol Tartrate IV* 1 MG/ML 5 ML VIAL ONE ×2 (11:33→11:43)
--- NOTE | 2017-01-17 12:48 | PN ---
Subjective Date of Service: 01/17/17 Interval History: HOSPITALIST PROGRESS NOTE Patient seen and examined at bedside. Despite having multiple episodes of pauses overnight, he denies any complaints. No dizziness, lightheadedness, or chest pressure. Family History: Unchanged from Admission Social History: Unchanged from Admission Past Medical History: Unchanged from Admission Objective Active Medications: Acetaminophen (Tylenol Tab*) 650 mg PO Q6H PRN PRN Reason: Pain or fever Last Admin: 01/15/17 00:01 Dose: 650 mg Aspirin (Aspirin Low Dose Tab*) 81 mg PO DAILY [facility] Last Admin: 01/17/17 09:23 Dose: 81 mg Atorvastatin Calcium (Lipitor*) 40 mg PO 2100 [facility] Last Admin: 01/16/17 20:42 Dose: 40 mg Sodium Chloride (Ns 0.9% 1000 Ml*) 1,000 mls @ 100 mls/hr IV PER RATE [facility] Last Admin: 01/17/17 09:23 Dose: 100 mls/hr Cefazolin Sodium/Dextrose (Kefzol 1 Gm In Dextrose Duplex (*)) 1 gm in 50 mls @ 200 mls/hr IVPB Q8H [facility] Stop: 01/18/17 05:14 Metoprolol Tartrate (Lopressor Iv*) 2.5 mg IV Q5M PRN PRN Reason: HR>120 Last Admin: 01/16/17 16:36 Dose: 2.5 mg Omeprazole (Prilosec Cap*) 20 mg PO DAILY [facility] Last Admin: 01/17/17 09:23 Dose: 20 mg Potassium Chloride (Klor-Con Liquid*) 20 meq PO DAILY [facility] Last Admin: 01/17/17 09:23 Dose: 20 meq Sotalol HCl (Betapace Tab*) 80 mg PO 799,1999 [facility] Last Admin: 01/17/17 09:43 Dose: 80 mg Vital Signs 01/17/17 01/17/17 01/17/17 00:39 00:55 03:21 Temperature 99.0 F 99.0 F 98.6 F Pulse Rate 98 98 107 Respiratory 20 20 16 Rate Blood Pressure 143/82 143/82 128/79 (mmHg) O2 Sat by Pulse 97 97 97 Oximetry Oxygen Devices in Use Now: None Appearance: Pleasant elderly male lying in bed in NAD. Eyes: No Scleral Icterus Ears/Nose/Mouth/Throat: Mucous Membranes Moist Neck: Trachea Midline Respiratory: Symmetrical Chest Expansion and Respiratory Effort, Clear to Auscultation Cardiovascular: - - Normal S1 and S2, irregularly irregular Abdominal: NL Sounds; No Tenderness; No Distention Extremities: No Edema Neurological: Alert and Oriented x 3, NL Muscle Strength and Tone Lines/Tubes/Other Access: Clean, Dry and Intact Peripheral IV Nutrition: Taking PO's Result Diagrams: 01/16/17 05:09 01/17/17 05:31 Assess/Plan/Problems-Billing Assessment: Mr. Guevara is a 76yo M with PMH of CAD, HTN, HLD, melanoma, PUD s/p partial gastrectomy >30years ago, who presented with c/o chest pressure, found to be in Afib with RVR. - Patient Problems (1) Sepsis Comment: - Patient did not meet sepsis criteria on admission, but had leukocytosis and later on developed fever. - Source is likely viral pericarditis. (2) Viral pericarditis Comment: - Patient converted to sinus rhythm today and his EKG now clearly shows diffuse ST elevation suggestive of pericarditis, likely viral. - Continue supportive care. (3) Atrial fibrillation Comment: - Failed KALLIE CV, but converted with Sotalol yesterday, but now back in Afib. - Had several pauses overnight - plan for pacer placement. (4) CAD (coronary artery disease) Comment: - Serial troponins are negative. - Plan for stress test this week. - Continue Aspirin and Atorvastatin. (5) HTN (hypertension) Comment: - Controlled. (6) DVT prophylaxis Comment: - Lovenox on hold for pacer. - SCDs. (7) Full code status Status and Disposition: Inpatient.
[2017-01-17] MEDS ORDERED: ceFAZolin 1 GM in Dextrose (*) 1 GM/50 ML BAG IVPB SCH (13:00)
--- NOTE | 2017-01-17 13:41 | RAD ---
HISTORY: Status post device implant COMPARISONS: January 14, 2017 VIEWS:1: Single frontal portable view of the chest at 1:00 PM. The right costophrenic angle is cut off. FINDINGS: LINES AND TUBES: There is a left-sided pacemaker CARDIOMEDIASTINAL SILHOUETTE: The cardiomediastinal silhouette is stable. PLEURA: The left costophrenic angle is sharp. The right costophrenic angle is cut off. No pleural abnormalities are noted. There is no appreciable pneumothorax LUNG PARENCHYMA: The lungs are clear. ABDOMEN: The upper abdomen is clear. There is no subphrenic gas. BONES AND SOFT TISSUES: No bone or soft tissue abnormalities are noted. IMPRESSION: LIMITED STUDY. NO ACTIVE CARDIOPULMONARY DISEASE
[2017-01-17] MEDS: Acetaminophen TAB* 325 MG PO PRN ×2 (13:52→21:28)
[2017-01-17] MEDS: ceFAZolin 1 GM in Dextrose (*) 1 GM/50 ML BAG IVPB SCH (19:14)
[2017-01-17] MEDS ORDERED: PROCHLORPERAZINE INJ 5 MG/ML 2 ML VIAL IV PRN (20:15)
--- NOTE | 2017-01-17 20:49 | PN ---
Progress Note - Progress Note Note: Asked to evaluate patient with complaint of diaphoresis and paleness, followed by chills and vomiting. Patient's vitals stable, mentating well. His only complaint after being given compazine for nausea is of persistent belching which he and his family reports had also happened on Tuesday. Suspect symptoms are related to viral syndrome with pericarditis as has been noted per Dr. Joseph. Plan to check troponin x 2 and to check labs in AM.
[2017-01-17] MEDS: Atorvastatin* 40 MG TAB PO SCH (21:28)
[2017-01-17] MEDS: Metoprolol Tartrate IV* 1 MG/ML 5 ML VIAL IV PRN (22:31)
[2017-01-18] MEDS: ceFAZolin 1 GM in Dextrose (*) 1 GM/50 ML BAG IVPB SCH (03:47)
[2017-01-18] MEDS: NS 0.9% 1000 ML* 1,000 ML IV SCH (05:39)
[2017-01-18 06:01] LABS: Hematocrit 41 % (42-52); Hemoglobin 13.9 g/dl (14.0-18.0); Mean Corpuscular HGB Conc 34 g/dl (31-36); Mean Corpuscular Hemoglobin 31 pg (27-31); Mean Corpuscular Volume 92 fL (80-94); Mean Platelet Volume 10 um3 (7.4-10.4); Red Blood Count 4.45 10^6/ul (4.0-5.4); Red Cell Distribution Width 13 % (10.5-15); White Blood Count 18.4 10^3/ul (3.5-10.8)
[2017-01-18 06:02] LABS: Add Diff/Slide Review? Slide Review Added
--- NOTE | 2017-01-18 07:32 | OP ---
DATE OF OPERATION: 01/17/17 - ROOM #434 DATE OF : 44 SURGEON: Nima Ellsworth MD ANESTHESIA: Local anesthesia with conscious sedation. PRE-OP DIAGNOSES: 1. Atrial fibrillation. 2. Sick sinus syndrome. POST-OP DIAGNOSES: 1. Atrial fibrillation. 2. Sick sinus syndrome. OPERATIVE PROCEDURE: Dual-chamber pacemaker implantation. INDICATIONS: The patient is a 76-year-old gentleman with a history of coronary artery disease, who was admitted to the hospital with chest pain and shortness of breath. He was found to be in atrial fibrillation with rapid ventricular response. The patient has been going in and out of atrial fibrillation and normal sinus rhythm. When the patient converts from atrial fibrillation to normal sinus rhythm, he had up to a 6-second pause. The patient was diagnosed with sick sinus syndrome. Permanent pacemaker was recommended. ESTIMATED BLOOD LOSS: Nil. COMPLICATIONS: None. DESCRIPTION OF PROCEDURE: The patient was brought to the procedure room in a fasting state. Informed consent had been obtained prior to the procedure. All labs had been reviewed. The patient was placed supine on the procedure table. His left deltopectoral area was cleaned and draped in the usual fashion. 1% lidocaine was used for local anesthesia. Using ultrasound guidance, the axillary vein was entered by a modified Seldinger technique and a guidewire was placed. A second guidewire was placed in the same technique. A 3-cm incision was made in the pectoral area. Blunt dissection was carried down to the pectoral fascia. A small pocket was fashioned for the pacemaker. Over the first guidewire, a 7-Peruvian sheath introducer was placed through which a right ventricular lead was advanced to the RV apex. The right ventricular lead was a Medtronic, model 5076, serial #[id number]. It had an R-wave sensitivity of 11, impedance 782 ohms, threshold 0.3 volts at 0.5 milliseconds. The ventricular lead was then sutured to the pectoral fascia using 0 silk. Over the second guidewire, a 7-Peruvian sheath introducer was placed through which a right atrial lead was advanced to the high right atrium. The right atrial lead was a Medtronic, model 5076, serial #[id number]. It had a P- wave sensitivity of 4.2 millivolts, impedance 584 ohms, threshold 0.6 volts at 0.5 milliseconds. The right atrial lead was then sutured to the pectoral fascia using 0 silk. The pocket was flushed with antibiotic-infused normal saline. A new generator was attached appropriately to the atrial and ventricular leads. The generator was a [employer], model A2DR01, serial #[id number]. The device was placed into the pocket. The surgical incision was closed in three layers. The subcutaneous tissue was closed with 2-0 and 3-0 absorbable suture. The skin was closed with osmin. The patient was returned to the floor in stable condition. CC: Dr. Lloyd Quispe* [id number]/[facility] #: [id number] AXEL
[2017-01-18] MEDS: Omeprazole CAP* 20 MG PO SCH (07:34)
[2017-01-18] MEDS: Sotalol TAB* 80 MG PO SCH ×3 (07:34→18:15)
[2017-01-18] MEDS: Aspirin Low Dose CHEW TAB* 81 MG PO SCH (07:35)
[2017-01-18] MEDS: Potassium Chloride LIQUID* 20 MEQ PACKET PO SCH (07:35)
--- NOTE | 2017-01-18 08:08 | RAD ---
INDICATION: Status post left upper chest cardiac pacer implantation. COMPARISON: Most recent comparison chest x-ray January 17, 2017 TECHNIQUE: PA and lateral views of the chest were obtained. FINDINGS: The left upper chest cardiac pacemaker is unchanged in position with 2 leads overlying the heart. Surgical skin osmin are seen overlying the pacer. The heart and mediastinum are normal in size and contour. The lungs are grossly clear. There is no evidence of large pleural effusion. Visualized bones are normal for the patient's age. There is no radiographic evidence of free air beneath the diaphragm IMPRESSION: NO RADIOGRAPHIC EVIDENCE OF ACUTE CARDIOPULMONARY DISEASE STATUS POST RECENT PLACEMENT OF A LEFT UPPER CHEST CARDIAC PACEMAKER.
[2017-01-18] MEDS: Metoprolol Tartrate IV* 1 MG/ML 5 ML VIAL IV PRN ×4 (08:26→16:24)
[2017-01-18] MEDS ORDERED: Sotalol TAB* 80 MG PO ONE (08:26)
[2017-01-18] MEDS: Metoprolol Succinate XL TAB* 25 MG PO SCH (09:34)
[2017-01-18] MEDS: Apixaban* 5 MG TAB PO SCH ×2 (09:34→20:35)
[2017-01-18] MEDS ORDERED: Enoxaparin(*) 80 MG/0.8 ML SYR SUBCUT SCH (12:00)
[2017-01-18] MEDS: Cephalexin CAP* 500 MG PO SCH ×2 (13:32→20:35)
--- NOTE | 2017-01-18 13:42 | PN ---
Subjective Date of Service: 01/18/17 Interval History: HOSPITALIST PROGRESS NOTE Patient seen and examined at bedside. He offers no complaints, denies pain. Still having episodes of rapid Afib. Family History: Unchanged from Admission Social History: Unchanged from Admission Past Medical History: Unchanged from Admission Objective Active Medications: Acetaminophen (Tylenol Tab*) 650 mg PO Q6H PRN PRN Reason: Pain or fever Last Admin: 01/17/17 21:28 Dose: 650 mg Apixaban (Eliquis*) 5 mg PO BID [facility] Last Admin: 01/18/17 09:34 Dose: 5 mg Aspirin (Aspirin Low Dose Tab*) 81 mg PO DAILY [facility] Last Admin: 01/18/17 07:35 Dose: 81 mg Atorvastatin Calcium (Lipitor*) 40 mg PO 2100 [facility] Last Admin: 01/17/17 21:28 Dose: 40 mg Cephalexin HCl (Keflex Cap*) 500 mg PO TID [facility] Stop: 01/21/17 23:59 Last Admin: 01/18/17 13:32 Dose: 500 mg Metoprolol Succinate (Toprol Xl Tab*) 25 mg PO DAILY [facility] Last Admin: 01/18/17 09:34 Dose: 25 mg Metoprolol Tartrate (Lopressor Iv*) 2.5 mg IV Q5M PRN PRN Reason: HR>120 Last Admin: 01/18/17 08:26 Dose: 2.5 mg Omeprazole (Prilosec Cap*) 20 mg PO DAILY [facility] Last Admin: 01/18/17 07:34 Dose: 20 mg Potassium Chloride (Klor-Con Liquid*) 20 meq PO DAILY [facility] Last Admin: 01/18/17 07:35 Dose: 20 meq Prochlorperazine Edisylate (Compazine Inj*) 5 mg IV Q6H PRN PRN Reason: NAUSEA/VOMITING Last Admin: 01/17/17 20:31 Dose: 5 mg Sotalol HCl (Betapace Tab*) 120 mg PO 799,1999 [facility] Vital Signs 01/18/17 01/18/17 11:00 11:31 Temperature 98.7 F Pulse Rate 63 Respiratory 22 Rate Blood Pressure 128/79 (mmHg) O2 Sat by Pulse 97 98 Oximetry Oxygen Devices in Use Now: None Appearance: Pleasant elderly male lying in bed in NAD. Eyes: No Scleral Icterus Ears/Nose/Mouth/Throat: Mucous Membranes Moist Neck: Trachea Midline Respiratory: Symmetrical Chest Expansion and Respiratory Effort, Clear to Auscultation Cardiovascular: - - Normal S1 and S2, tachycardic Abdominal: NL Sounds; No Tenderness; No Distention Extremities: No Edema Neurological: Alert and Oriented x 3, NL Muscle Strength and Tone Lines/Tubes/Other Access: Clean, Dry and Intact Peripheral IV Nutrition: Taking PO's Result Diagrams: 01/18/17 04:30 01/17/17 05:31 Assess/Plan/Problems-Billing Assessment: Mr. Guevara is a 76yo M with PMH of CAD, HTN, HLD, melanoma, PUD s/p partial gastrectomy >30years ago, who presented with c/o chest pressure, found to be in Afib with RVR. - Patient Problems (1) Sepsis Comment: - Patient did not meet sepsis criteria on admission, but had leukocytosis and later on developed fever. - Source is likely viral pericarditis. (2) Viral pericarditis Comment: - Patient converted to sinus rhythm today and his EKG now clearly shows diffuse ST elevation suggestive of pericarditis, likely viral. - Had fever again last night. - Blood cultures show no growth and urinalysis was negative. - Continue supportive care. (3) Atrial fibrillation Comment: - Failed KALLIE CV, but converted with Sotalol yesterday, in and out of Afib now. - D/w cardiology - increase Sotalol to 120mg BID. (4) CAD (coronary artery disease) Comment: - Serial troponins are negative. - Plan for stress test this week. - Continue Aspirin and Atorvastatin. (5) HTN (hypertension) Comment: - Controlled. (6) DVT prophylaxis Comment: - Resume Lovenox. - SCDs. (7) Full code status Status and Disposition: Inpatient.
[2017-01-18] MEDS: Atorvastatin* 40 MG TAB PO SCH (20:35)
[2017-01-18] MEDS: Acetaminophen TAB* 325 MG PO PRN (23:34)
[2017-01-19 05:35] LABS: Hematocrit 38 % (42-52); Mean Corpuscular HGB Conc 34 g/dl (31-36); Mean Corpuscular Hemoglobin 31 pg (27-31); Mean Corpuscular Volume 92 fL (80-94); Mean Platelet Volume 10 um3 (7.4-10.4); Red Blood Count 4.16 10^6/ul (4.0-5.4); Red Cell Distribution Width 13 % (10.5-15); White Blood Count 13.2 10^3/ul (3.5-10.8)
[2017-01-19 05:48] LABS: BUN/Creatinine Ratio 21.9 (8-20); Calcium 8.8 mg/dL (8.6-10.3); EGFR African American 98.5 (>60); EGFR Non-African American 76.6 (>60); Potassium 3.9 mmol/L (3.5-5.0)
[2017-01-19] MEDS: Metoprolol Succinate XL TAB* 25 MG PO SCH (08:25)
[2017-01-19] MEDS: Sotalol TAB* 80 MG PO SCH ×2 (08:26→20:04)
[2017-01-19] MEDS: Omeprazole CAP* 20 MG PO SCH (09:11)
[2017-01-19] MEDS: Aspirin Low Dose CHEW TAB* 81 MG PO SCH (09:11)
[2017-01-19] MEDS: Potassium Chloride LIQUID* 20 MEQ PACKET PO SCH ×2 (09:11→20:04)
[2017-01-19] MEDS: Cephalexin CAP* 500 MG PO SCH ×3 (09:11→20:05)
[2017-01-19] MEDS: Apixaban* 5 MG TAB PO SCH ×2 (09:11→20:05)
--- NOTE | 2017-01-19 10:13 | PN ---
Subjective Date of Service: 01/19/17 Interval History: HOSPITALIST PROGRESS NOTE Patient seen and examined at bedside. He feels well today, denies CP or palpitations, despite HR 150 while we speak. Family History: Unchanged from Admission Social History: Unchanged from Admission Past Medical History: Unchanged from Admission Objective Active Medications: Acetaminophen (Tylenol Tab*) 650 mg PO Q6H PRN PRN Reason: Pain or fever Last Admin: 01/18/17 23:34 Dose: 650 mg Apixaban (Eliquis*) 5 mg PO BID [facility] Last Admin: 01/19/17 09:11 Dose: 5 mg Aspirin (Aspirin Low Dose Tab*) 81 mg PO DAILY [facility] Last Admin: 01/19/17 09:11 Dose: 81 mg Atorvastatin Calcium (Lipitor*) 40 mg PO 2100 [facility] Last Admin: 01/18/17 20:35 Dose: 40 mg Cephalexin HCl (Keflex Cap*) 500 mg PO TID [facility] Stop: 01/21/17 23:59 Last Admin: 01/19/17 09:11 Dose: 500 mg Metoprolol Succinate (Toprol Xl Tab*) 25 mg PO DAILY [facility] Last Admin: 01/19/17 08:25 Dose: 25 mg Metoprolol Tartrate (Lopressor Iv*) 2.5 mg IV Q5M PRN PRN Reason: HR>120 Last Admin: 01/18/17 16:24 Dose: 2.5 mg Omeprazole (Prilosec Cap*) 20 mg PO DAILY [facility] Last Admin: 01/19/17 09:11 Dose: 20 mg Potassium Chloride (Klor-Con Liquid*) 20 meq PO BID [facility] Prochlorperazine Edisylate (Compazine Inj*) 5 mg IV Q6H PRN PRN Reason: NAUSEA/VOMITING Last Admin: 01/17/17 20:31 Dose: 5 mg Sotalol HCl (Betapace Tab*) 120 mg PO 0800,1999 [facility] Last Admin: 01/19/17 08:26 Dose: 120 mg Vital Signs 01/19/17 07:28 Temperature 98.7 F Pulse Rate 89 Respiratory 22 Rate Blood Pressure 138/85 (mmHg) O2 Sat by Pulse 97 Oximetry Oxygen Devices in Use Now: None Appearance: Pleasant elderly male sitting up in bed in NAD. Eyes: No Scleral Icterus Ears/Nose/Mouth/Throat: Mucous Membranes Moist Neck: Trachea Midline Respiratory: Symmetrical Chest Expansion and Respiratory Effort, Clear to Auscultation Cardiovascular: - - Normal S1 and S2, irregularly irregular Abdominal: NL Sounds; No Tenderness; No Distention Extremities: No Edema Neurological: Alert and Oriented x 3, NL Muscle Strength and Tone Lines/Tubes/Other Access: Clean, Dry and Intact Peripheral IV Nutrition: Taking PO's Result Diagrams: 01/19/17 04:21 01/19/17 04:21 Assess/Plan/Problems-Billing Assessment: Mr. Guevara is a 76yo M with PMH of CAD, HTN, HLD, melanoma, PUD s/p partial gastrectomy >30years ago, who presented with c/o chest pressure, found to be in Afib with RVR. - Patient Problems (1) Sepsis Comment: - Patient did not meet sepsis criteria on admission, but had leukocytosis and later on developed fever. - Source is likely viral pericarditis. (2) Viral pericarditis Comment: - Patient converted to sinus rhythm today and his EKG now clearly shows diffuse ST elevation suggestive of pericarditis, likely viral. - Afebrile for 48h. - Blood cultures show no growth and urinalysis was negative. - Continue supportive care. (3) Atrial fibrillation Comment: - Failed KALLIE CV, but converted with Sotalol yesterday, in and out of Afib now. - D/w cardiology - increase Sotalol to 120mg BID on 01/18/17 and added Metoprolol XL 25mg. - D/w cardiology again today - add Cardizem CD 120mg. - Continue Eliquis. (4) CAD (coronary artery disease) Comment: - Serial troponins are negative. - Plan for stress test as outpatient when his Afib is controlled. - Continue Aspirin and Atorvastatin. (5) HTN (hypertension) Comment: - Controlled. (6) DVT prophylaxis Comment: - Eliquis. (7) Full code status Status and Disposition: Inpatient.
--- NOTE | 2017-01-19 10:23 | PN ---
Subjective Date of Service: 01/19/17 - CC: I want to go home, pt has recurrent atrial fibrillation with RVR Interval History: The patient is feeling great, walking well, no SOB, not dizzy. Pt unaware back in afib, no palpitations or racing. Sleeping well. Medications Active Medications: Acetaminophen (Tylenol Tab*) 650 mg PO Q6H PRN PRN Reason: Pain or fever Last Admin: 01/18/17 23:34 Dose: 650 mg Apixaban (Eliquis*) 5 mg PO BID [facility] Last Admin: 01/19/17 09:11 Dose: 5 mg Aspirin (Aspirin Low Dose Tab*) 81 mg PO DAILY [facility] Last Admin: 01/19/17 09:11 Dose: 81 mg Atorvastatin Calcium (Lipitor*) 40 mg PO 2100 [facility] Last Admin: 01/18/17 20:35 Dose: 40 mg Cephalexin HCl (Keflex Cap*) 500 mg PO TID [facility] Stop: 01/21/17 23:59 Last Admin: 01/19/17 09:11 Dose: 500 mg Diltiazem HCl (Cardizem Cd Cap*) 120 mg PO DAILY [facility] Metoprolol Succinate (Toprol Xl Tab*) 25 mg PO DAILY [facility] Last Admin: 01/19/17 08:25 Dose: 25 mg Metoprolol Tartrate (Lopressor Iv*) 2.5 mg IV Q5M PRN PRN Reason: HR>120 Last Admin: 01/18/17 16:24 Dose: 2.5 mg Omeprazole (Prilosec Cap*) 20 mg PO DAILY [facility] Last Admin: 01/19/17 09:11 Dose: 20 mg Potassium Chloride (Klor-Con Liquid*) 20 meq PO BID [facility] Prochlorperazine Edisylate (Compazine Inj*) 5 mg IV Q6H PRN PRN Reason: NAUSEA/VOMITING Last Admin: 01/17/17 20:31 Dose: 5 mg Sotalol HCl (Betapace Tab*) 120 mg PO 799,1999 [facility] Last Admin: 01/19/17 08:26 Dose: 120 mg Objective Vital Signs: Temp Pulse Resp BP Pulse Ox 98.7 F 89 22 138/85 97 01/19/17 07:28 01/19/17 07:28 01/19/17 07:28 01/19/17 07:28 01/19/17 07:28 Oxygen Devices in Use Now: None Appearance: Fit appearing older gentleman in no distress, amublating well, spry. Eyes: No Scleral Icterus, PERRLA Ears/Nose/Mouth/Throat: Clear Oropharnyx, Mucous Membranes Moist Neck: NL Appearance and Movements; NL JVP, Trachea Midline Respiratory: Symmetrical Chest Expansion and Respiratory Effort, Clear to Auscultation Cardiovascular: NL Sounds; No Murmurs; No JVD - irregularly irregular. Abdominal: No Hepatosplenomegaly Skin: No Rash or Ulcers - Incision left subclavian fossa no hematoma, ecchymosis and no evidence of infection. Lines/Tubes/Other Access: Clean, Dry and Intact Peripheral IV Laboratory Results: 01/19/17 04:21 01/19/17 04:21 Total Bilirubin 1.50 mg/dL (0.2-1.0) H 01/14/17 08:15 AST 29 U/L (13-39) 01/14/17 08:15 ALT 22 U/L (7-52) 01/14/17 08:15 Alkaline Phosphatase 104 U/L (34-104) 01/14/17 08:15 Total Protein 7.6 g/dL (6.4-8.9) 01/14/17 08:15 Albumin 4.3 g/dL (3.2-5.2) 01/14/17 08:15 Globulin 3.3 g/dL (2-4) 01/14/17 08:15 Albumin/Globulin Ratio 1.3 (1-3) 01/14/17 08:15 TSH 1.87 mcIU/mL (0.34-5.60) 01/14/17 08:15 01/15/17 01/16/17 01/17/17 07:46 05:09 05:31 Troponin I 0.03 0.02 0.03 01/17/17 01/18/17 21:59 01:30 Troponin I 0.04 H* 0.03 EKG Data: Monitor: afib, RVR 120's. Assessment/Plan 76 yo with tachy gabby, POD # 2 dual chamber pacer implant who is still in and out of afib with rapid rates despite increased sotalol and addition of beta eloina yesterday. Clinically asymptomatic. Points of Discussion: Pacer: Good function on recheck yesterday. Discharge on Keflex 500 mg TID X 3 days. Follow up wound check with Dr Ellsworth next week. Afib: Option of giving KCl to bring level between 4 and 5. Check magnesium. Continue Sotalol 120 mg BID, not yet at steady state. Continue Toprol XL 25 mg/day Add Cardizem CD 120 mg/day for rate control. As afib recurred w/sleep, consider out patient sleep evaluation for possible BIANCA , lean body habitus doesn't preclude BIANCA. Continue NOAC indefinitely for asymptomatic afib. CAD: Nominal bump in trops and no angina. Continue medical management-BB and CCB are antianginal. Not on a statin and not listed as an allergy, no lipid panel in they system found. Out patient or inpatient lipid update recommended. Out patient follow up, possible updated stress test non urgent.
[2017-01-19] MEDS ORDERED: Diltiazem CD CAP* 120 MG PO SCH (11:00)
[2017-01-19] MEDS: Metoprolol Tartrate IV* 1 MG/ML 5 ML VIAL IV PRN ×5 (12:20→23:37)
[2017-01-19] MEDS: Atorvastatin* 40 MG TAB PO SCH (20:04)
[2017-01-20 07:47] LABS: HDL Cholesterol 31.4 mg/dL
[2017-01-20] MEDS: Potassium Chloride LIQUID* 20 MEQ PACKET PO SCH (07:57)
[2017-01-20] MEDS: Apixaban* 5 MG TAB PO SCH (07:57)
[2017-01-20] MEDS: Sotalol TAB* 80 MG PO SCH (07:57)
[2017-01-20] MEDS: Metoprolol Succinate XL TAB* 25 MG PO SCH (07:57)
[2017-01-20] MEDS: Omeprazole CAP* 20 MG PO SCH (07:57)
[2017-01-20] MEDS: Aspirin Low Dose CHEW TAB* 81 MG PO SCH (07:58)
[2017-01-20] MEDS: Cephalexin CAP* 500 MG PO SCH ×2 (07:58→14:20)
[2017-01-20] MEDS ORDERED: Diltiazem CD CAP* 120 MG PO SCH (09:00)
[2017-01-20] MEDS ORDERED: Diltiazem TAB* 60 MG PO ONE (11:47)
--- NOTE | 2017-01-20 12:37 | PN ---
Subjective Date of Service: 01/20/17 Interval History: HOSPITALIST PROGRESS NOTE Patient seen and examined at bedside. He feels well, but Afib is still uncontrolled. Family History: Unchanged from Admission Social History: Unchanged from Admission Past Medical History: Unchanged from Admission Objective Active Medications: Acetaminophen (Tylenol Tab*) 650 mg PO Q6H PRN PRN Reason: Pain or fever Last Admin: 01/18/17 23:34 Dose: 650 mg Apixaban (Eliquis*) 5 mg PO BID [facility] Last Admin: 01/20/17 07:57 Dose: 5 mg Aspirin (Aspirin Low Dose Tab*) 81 mg PO DAILY [facility] Last Admin: 01/20/17 07:58 Dose: 81 mg Atorvastatin Calcium (Lipitor*) 40 mg PO 2100 [facility] Last Admin: 01/19/17 20:04 Dose: 40 mg Cephalexin HCl (Keflex Cap*) 500 mg PO TID [facility] Stop: 01/21/17 23:59 Last Admin: 01/20/17 07:58 Dose: 500 mg Diltiazem HCl (Cardizem Cd Cap*) 180 mg PO DAILY [facility] Metoprolol Succinate (Toprol Xl Tab*) 25 mg PO DAILY [facility] Last Admin: 01/20/17 07:57 Dose: 25 mg Metoprolol Tartrate (Lopressor Iv*) 2.5 mg IV Q5M PRN PRN Reason: HR>120 Last Admin: 01/19/17 23:37 Dose: 2.5 mg Omeprazole (Prilosec Cap*) 20 mg PO DAILY [facility] Last Admin: 01/20/17 07:57 Dose: 20 mg Potassium Chloride (Klor-Con Liquid*) 20 meq PO BID [facility] Last Admin: 01/20/17 07:57 Dose: 20 meq Prochlorperazine Edisylate (Compazine Inj*) 5 mg IV Q6H PRN PRN Reason: NAUSEA/VOMITING Last Admin: 01/17/17 20:31 Dose: 5 mg Sotalol HCl (Betapace Tab*) 120 mg PO 0800,1999 [facility] Last Admin: 01/20/17 07:57 Dose: 120 mg Vital Signs 01/20/17 01/20/17 01/20/17 07:37 11:00 11:04 Temperature 98.1 F Pulse Rate 54 Respiratory 16 20 Rate Blood Pressure 125/88 (mmHg) O2 Sat by Pulse 97 97 Oximetry Oxygen Devices in Use Now: None Appearance: Pleasant gentleman sitting up in bed in NAD. Eyes: No Scleral Icterus Ears/Nose/Mouth/Throat: Mucous Membranes Moist Neck: Trachea Midline Respiratory: Symmetrical Chest Expansion and Respiratory Effort, Clear to Auscultation Cardiovascular: - - Normal S1 and S2, irregularly irregular Abdominal: NL Sounds; No Tenderness; No Distention Extremities: No Edema Neurological: Alert and Oriented x 3, NL Muscle Strength and Tone Lines/Tubes/Other Access: Clean, Dry and Intact Peripheral IV Nutrition: Taking PO's Result Diagrams: 01/19/17 04:21 01/19/17 04:21 Assess/Plan/Problems-Billing Assessment: Mr. Guevara is a 76yo M with PMH of CAD, HTN, HLD, melanoma, PUD s/p partial gastrectomy >30years ago, who presented with c/o chest pressure, found to be in Afib with RVR. - Patient Problems (1) Sepsis Comment: - Patient did not meet sepsis criteria on admission, but had leukocytosis and later on developed fever. - Source is likely viral pericarditis. (2) Viral pericarditis Comment: - Continues to be in and out of Afib. - Blood cultures show no growth and urinalysis was negative. - Continue supportive care. (3) Atrial fibrillation Comment: - Failed KALLIE CV, but converted with Sotalol yesterday, in and out of Afib now. - Continue Sotalol and Metoprolol XL 25mg. - Increase Cardizem CD to 180mg. - Continue Eliquis. (4) CAD (coronary artery disease) Comment: - Serial troponins are negative. - Plan for stress test as outpatient when his Afib is controlled. - Continue Aspirin and Atorvastatin. (5) HTN (hypertension) Comment: - Controlled. (6) DVT prophylaxis Comment: - Eliquis. (7) Full code status Status and Disposition: Inpatient. Anticipate d/c home when HR is controlled.
[2017-01-20 15:59] VITALS: BP 127/73
--- NOTE | 2017-01-20 21:47 | DS ---
DISCHARGE SUMMARY: DATE OF ADMISSION: 01/14/17 DATE OF DISCHARGE: 01/20/17 PRIMARY CARE PROVIDER: Dr. Currie. CONFIGURATION CONSULTANT: Dr. Quispe DISCHARGE DIAGNOSES: 1. Sepsis, present on admission. 2. Viral pericarditis. 3. Atrial fibrillation with rapid ventricular rate. 4. Tachybrady syndrome, status post pacemaker. 5. Leukocytosis. SECONDARY DIAGNOSES: 1. Coronary artery disease. 2. Hypertension. 3. Hyperlipidemia. 4. Remote history of peptic ulcer disease. 5. Melanoma. MEDICATIONS: 1. Potassium chloride 20 mEq p.o. daily. 2. Pantoprazole 40 mg p.o. daily. 3. Multivitamin 1 tab p.o. daily. 4. Aspirin 81 mg p.o. daily. Medication change: 1. Metoprolol succinate 25 mg p.o. daily. New medications: 1. Sotalol 120 mg p.o. b.i.d. 2. Cardizem CD 180 mg p.o. daily. 3. Cephalexin 500 mg p.o. t.i.d. for 3 more days. 4. Atorvastatin 40 mg p.o. at bedtime. 5. Apixaban 5 mg p.o. b.i.d. HOSPITAL COURSE: Mr. Guevara is a 76-year-old male with a past medical history as stated above who presented to the emergency room on 01/14/17 with complaints of chest pressure that had started 3 days prior to admission. In the emergency room, he was found to be in atrial fibrillation with a ventricular rate of 121 beats per minute. For more details about his presentation, I refer you to his history and physical. The patient was admitted to the telemetry floor and started on a Cardizem drip. He was seen in consultation by Cardiology (Dr. Quispe) and his recommendation was for KALLIE cardioversion. The patient had been started on Lovenox for anticoagulation and he was taken to the cardiology floor and the patient was unable to maintain sinus rhythm despite four attempts at cardioversion using IV Lopressor and IV amiodarone. Dr. Quispe's recommendation was to start sotalol 80 mg p.o. b.i.d. and the patient's EKG after attempted cardioversion showed diffuse ST elevation suggestive of pericarditis. That same day, the patient spiked a fever of 101.8, so although initially he did not meet sepsis criteria, later on he did with fever and leukocytosis. The impression was that he probably had a viral pericarditis contributing to his symptoms. Blood cultures yielded no growth. Urinalysis was normal and influenza rapid tests were negative. His chest x-ray also showed no infiltrate. Despite sotalol, the patient continued to be in atrial fibrillation with rapid ventricular rate and he started to show episodes of pauses including one that was greater than 6 seconds. At that point, decision was made to pursue pacemaker placement for tachybrady syndrome. On 01/17/17, a [employer] dual-chamber pacemaker was placed by Dr. Ellsworth. After the pacemaker was placed, medications continued to be titrated with the addition of metoprolol succinate, increase in his sotalol dose to 120 mg b.i.d. , but the patient continued to go fast. So, Cardizem CD was added and when the dose was increased to 180 mg, we finally achieved good rate control and despite being on all those medications, his blood pressure has been within normal limits. The patient had resolution of his chest pressure and he was not aware of palpitations. So it is not really clear for how long he was in atrial fibrillation before admission. Dr. Ellsworth discussed risks and benefits of anticoagulation and he was switched from Lovenox to apixaban. The patient is medically stable for discharge at this time. He will follow up with Dr. Quispe next week to have a pacer checked, and the plan is also to pursue a stress test as outpatient. Please also note that as the patient is now on Cardizem 180 mg, I cut down his atorvastatin dose from 80 to 40 mg. The patient was felt to be stable for discharge today. PHYSICAL EXAMINATION: Vital Signs: Temperature 97.1, heart rate is 78, respiratory rate is 18, oxygen saturation 97% on room air, blood pressure is 127 /73. General: The patient is a pleasant gentleman, sitting up in bed, in no acute distress. CVS: Normal S1, S2. Irregularly irregular. Chest: Breath sounds present bilaterally with no added sounds. The pacemaker site has a clean dressing intact. Abdomen is soft. Bowel sounds are present. Extremities : No edema. Neuro: He is alert, awake, and oriented x3. Able to move all four extremities. He had an immobilizer to his left upper extremity. DIET: Heart-healthy diet. The patient was advised to avoid caffeine. ACTIVITY: As tolerated. He received education about activity restriction after pacemaker placement. He was also advised to avoid gym for now until he is cleared by Dr. Quispe to return. STATUS WHILE IN THE HOSPITAL: Inpatient. Please keep in mind that this is a summarized version of this patient's prolonged hospital stay. If you need more information, please feel free to call me at or please obtain the full medical records. TIME SPENT: Approximately 45 minutes were spent to complete this discharge. CC: Dr. Currie; Dr. Quispe* [id number]/CPS #: [id number] MTDD
[2017-01-21] MEDS ORDERED: Diltiazem CD CAP* 180 MG PO SCH (09:00)
== END 2017-01-20 18:48 | disposition home health service (06) | DRG 242 ==
LOC: ED 07:59 → MEDTELE 09:01 → OBSVTOIN 01-15 07:17
PROVIDERS: ADMIT Internal Medicine; ATTEND Internal Medicine
PROC: 5A2204Z Restoration of Cardiac Rhythm, Single (ICD-10-PCS; 2017-01-14)
PROC: B24BZZ4 Ultrasonography of Heart with Aorta, Transesophageal (ICD-10-PCS; 2017-01-14)
PROC: 02HK3JZ Insertion of Pacemaker Lead into Right Ventricle, Percutaneous Approach (ICD-10-PCS; 2017-01-17)
PROC: 02H63JZ Insertion of Pacemaker Lead into Right Atrium, Percutaneous Approach (ICD-10-PCS; 2017-01-17)
PROC: 0JH606Z Insertion of Pacemaker, Dual Chamber into Chest Subcutaneous Tissue and Fascia, Open Approach (ICD-10-PCS; principal; 2017-01-17 11:00)
DX: I48.91 Unspecified atrial fibrillation (principal); A41.9 Sepsis, unspecified organism; I30.1 Infective pericarditis; I49.5 Sick sinus syndrome; I25.10 Atherosclerotic heart disease of native coronary artery without angina pectoris; E78.5 Hyperlipidemia, unspecified; I10 Essential (primary) hypertension; I48.92 Unspecified atrial flutter; Z79.82 Long term (current) use of aspirin; Z85.820 Personal history of malignant melanoma of skin; Z82.49 Family history of ischemic heart disease and other diseases of the circulatory system; Z87.11 Personal history of peptic ulcer disease; I25.2 Old myocardial infarction; R11.0 Nausea; Z87.891 Personal history of nicotine dependence
CPT/HCPCS: 33208; 36415; 71010; 71020; 80048; 80053; 80061; 81003; 81015; 83605; 83735; 84443; 84484; 85025; 85652; 86140; 86141; 87040; 87502; 92960; 93005; 93312; 93325; A9270-GY; C1785; C1898; G0378; J0282; J0690; J0780; J1650; J1885; J2001; J2250; J2310; J3010; J3480

== ENCOUNTER 2017-03-05 02:00 | Emergency (ER) | payer MEDICARE ==
--- NOTE | 2017-03-05 03:22 | ED ---
Nawaf Mukherjee Billy, scribed for Sumeet Seo MD on 03/05/17 at 0314 . 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 He had the procedure done the morning of 03/04/17 and noticed significant bleeding at 1730 later that day. He tried to apply pressure and gauze at home without any improvement to the bleeding. - History Of Current Complaint Chief Complaint: EDGeneral Time Seen by Provider: 03/05/17 03:00 Hx Obtained From: Patient Onset/Duration: Gradual Onset, Lasting Hours Timing: Constant Severity Currently: Moderate Severity Initially: Moderate Location: Negative Aggravating Factor(s): none Alleviating Factor(s): none - Allergies/Home Medications Allergies/Adverse Reactions: Allergies Allergy/AdvReac Type Severity Reaction Status Date / Time No Known Allergies Allergy Verified 03/05/17 02:05 PMH/Surg Hx/FS Hx/Imm Hx Cardiovascular History: Reports: Hx Coronary Artery Disease - MILD, BLOCKAGE, ON MEDS, Hx Hypercholesterolemia, Hx Hypertension, Hx Pacemaker/ICD Denies: Other Cardiovascular Problems/Disorders Respiratory History: Denies: Other Respiratory Problems/Disorders GI History: Reports: Hx Gastroesophageal Reflux Disease, Hx Ulcer - 1983, HAD PARTIAL STOMACH REMOVED Musculoskeletal History: Denies: Other Musculoskeletal History Sensory History: Reports: Hx Contacts or Glasses Denies: Hx Hearing Aid Opthamlomology History: Reports: Hx Contacts or Glasses Neurological History: Denies: Other Neuro Impairments/Disorders - Surgical History Surgery Procedure, Year, and Place: 1983, PARTIAL STOMACH REMOVED, [facility] [place]. 2 FACIAL MELANOMAS REMOVED, 02/2012, 2006, [facility] [place] Hx Anesthesia Reactions: No Infectious Disease History: Denies: Traveled Outside the [place] in Last 30 Days - Family History Known Family History: Positive: Hypertension - Social History Alcohol Use: Weekly Substance Use Type: Reports: None Smoking Status (MU): Never Smoked Tobacco Review of Systems Negative: Fever Skin: Other - bleeding from SCC removal site All Other Systems Reviewed And Are Negative: Yes Physical Exam Triage Information Reviewed: Yes Vital Signs On Initial Exam: Initial Vitals Temp Pulse Resp BP Pulse Ox 99.0 F 76 16 170/81 99 03/05/17 02:00 03/05/17 02:00 03/05/17 02:00 03/05/17 02:00 03/05/17 02:00 Vital Signs Reviewed: Yes Appearance: Positive: Well-Appearing, No Pain Distress Skin: Positive: Warm, Other - oozing from upper chest wall 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 Re-Evaluation - Re-Evaluation First Eval Change: Improved - bleeding contrtolled with pressure dressing Complex Multi-Symp Course/Dx - Diagnoses Provider Diagnoses: Bleeding from wound Discharge - Discharge Plan Condition: Improved Disposition: HOME Patient Education Materials: Acute Wound Care (ED) Referrals: Leonard Currie MD [Primary Care Provider] - The documentation as recorded by the Nawaf daniels Billy accurately reflects the service I personally performed and the decisions made by me, Sumeet Seo MD.
[2017-03-05 03:54] VITALS: BP 161/82
== END 2017-03-05 04:11 | disposition home or self-care (01) ==
LOC: ED 02:00
DX: L76.22 Postprocedural hemorrhage of skin and subcutaneous tissue following other procedure (principal); Z85.828 Personal history of other malignant neoplasm of skin
CPT/HCPCS: 99282

== ENCOUNTER → 2017-12-14 07:19 | Day surgery (SDC) | payer MEDICARE ==
[~2017-12-14 07:19] MED LIST: Acetaminophen TAB* 325 MG PO PRN; Buffered Lidocaine 0.9% SYRIN* 5 ML/SYR SYRINGE INTRADERM ONE; Cyclopentolate 1% OPTH.SOL* 2 ML BTL ONE; Ketorolac 0.5% OPHTH (NF) 0.5 % 5 ML BTL ONE; Lidocaine 1% MPF* 2 ML VIAL ONE; Lidocaine 2% EPI 1:200000 MPF* 20 ML VIAL ONE; Midazolam* 1 MG/ML 2 ML VIAL (2 MG) ONE; Neomycin/Polymy/Dex OPTH.SUSP* MAXITROL 0.1% 5 ML ONE; Phenylephrine 2.5% OPTH.SOL* 2 ML BTL ONE; Povidone Iodine 5% OPTH* 30 ML BTL ONE; Proparacaine 0.5% OPHTH.SOL* 15 ML BTL ONE; acetaZOLAMIDE TAB* 250 MG ONE
[2017-12-14 10:01] VITALS: BP 128/70
--- NOTE | 2017-12-15 02:45 | OP ---
DATE OF OPERATION: 12/14/17 [facility] DATE OF : 44 SURGEON: Min Chavez MD PRE-OP DIAGNOSIS: Cataract, right eye. POST-OP DIAGNOSIS: Cataract, right eye. OPERATIVE PROCEDURE: Extracapsular cataract extraction with intraocular lens implant, right eye. DESCRIPTION OF PROCEDURE: The patient was brought to the operating room after being given 1/2% Alcaine with epinephrine drops in the preoperative area. The eye was prepped and draped in the usual sterile fashion. Sterile drape and eyelid speculum were placed. Again, topical 1/2% Alcaine with epinephrine was given. A paracentesis incision was made at the 9 o'clock position with the No.75 blade. Clear cornea incision 2.2 x 2.2-mm was created at the 12 o'clock position starting at the anterior limbus using the 2.2-mm keratome. The anterior chamber was irrigated with 0.4 mL of 1% non-preservative intracameral lidocaine and filled with DisCoVisc. A capsulorrhexis was completed using the cystotome and the Utrata forceps. Hydrodissection was performed with balanced salt solution. The lens nucleus was removed with the Phacoemulsification handpiece without incident. Cortex was removed with the irrigation-aspiration handpiece. The capsular bag was re-inflated using DisCoVisc and an [id number] 23.5 implant was inserted with the shooter. The irrigation-aspiration handpiece was used to remove all residual DisCoVisc. The eye was refilled with balanced salt solution and the wound checked and found to be watertight. Topical Maxitrol drops were given. [id number]/[facility] #: [id number] [facility]
== END | disposition home or self-care (01) ==
LOC: OREAST 07:19
PROVIDERS: ATTEND Specialist
DX: H25.11 Age-related nuclear cataract, right eye (principal); H40.033 Anatomical narrow angle, bilateral; Z87.891 Personal history of nicotine dependence; I10 Essential (primary) hypertension; E78.00 Pure hypercholesterolemia, unspecified; I48.91 Unspecified atrial fibrillation; Z79.01 Long term (current) use of anticoagulants; K21.9 Gastro-esophageal reflux disease without esophagitis
CPT/HCPCS: A9270-GY; J2250; V2632

== ENCOUNTER 2017-12-21 09:14 | Day surgery (SDC) | payer MEDICARE ==
[~2017-12-21 09:14] MED LIST changes: -Midazolam* 1 MG/ML 2 ML VIAL (2 MG) ONE
[2017-12-21] MEDS ORDERED: Midazolam* 1 MG/ML 2 ML VIAL (2 MG) ONE ×2 (10:49→11:08)
[2017-12-21 11:39] VITALS: BP 130/67
--- NOTE | 2017-12-21 12:16 | OP ---
DATE OF OPERATION: 12/21/2017. DATE OF : 1940. SURGEON: Min Chavez M.D. PREOPERATIVE DIAGNOSIS: Cataract left eye. POSTOPERATIVE DIAGNOSIS: Cataract left eye. OPERATIVE PROCEDURE: Extracapsular cataract extraction with intraocular lens implant left eye. PROCEDURE: The patient was brought to the operating room after being given 1/2% Alcaine with epineph rine drops in the preoperative area. The eye was prepped and draped in the usual sterile fashion. S terile drape and eyelid speculum were placed. Again, topical 1/2% Alcaine with epinephrine was given . A paracentesis incision was made at the 3 o'clock position with the No.75 blade. Clear cornea inc ision 2.2 x 2.2-mm was created at the 6 o'clock position starting at the anterior limbus using the 2. 2-mm keratome. The anterior chamber was irrigated with 0.4 mL of 1% non-preservative intracameral li docaine and filled with DisCoVisc. A capsulorrhexis was completed using the cystotome and the Utrata forceps. Hydrodissection was performed with balanced salt solution. The lens nucleus was removed wi th the Phacoemulsification handpiece without incident. Cortex was removed with the irrigation-aspira tion handpiece. The capsular bag was re-inflated using DisCoVisc and an [id number] 24 implant was insert ed with the shooter. The irrigation-aspiration handpiece was used to remove all residual DisCoVisc. The eye was refilled with balanced salt solution and the wound checked and found to be watertight. Topical Maxitrol drops were given. [id number]/[facility] #: [id number]
== END 2017-12-21 11:35 | disposition home or self-care (01) ==
LOC: OREAST 09:14
PROVIDERS: ATTEND Specialist
DX: H25.12 Age-related nuclear cataract, left eye (principal); H40.033 Anatomical narrow angle, bilateral; Z87.891 Personal history of nicotine dependence; I48.91 Unspecified atrial fibrillation; Z79.01 Long term (current) use of anticoagulants; I25.10 Atherosclerotic heart disease of native coronary artery without angina pectoris; I10 Essential (primary) hypertension; E78.5 Hyperlipidemia, unspecified; I49.5 Sick sinus syndrome; Z95.0 Presence of cardiac pacemaker
CPT/HCPCS: A9270-GY; J2250; V2632

== ENCOUNTER 2019-04-06 17:57 | Emergency (ER) | payer MEDICARE ==
[2019-04-06 18:39] LABS: ABS Eosinophils 0.3 10^3/ul (0-0.6); ABS Lymphocytes 1.4 10^3/ul (1.0-4.8); ABS Monocytes 0.8 10^3/ul (0-0.8); ABS Neutrophils 5.1 10^3/ul (1.5-7.7); Eosinophil % 3.7 %; Hematocrit 40 % (42-52); Hemoglobin 13.5 g/dL (14.0-18.0); Lymphocyte % 18.9 %; Mean Corpuscular HGB Conc 34 g/dL (31-36); Mean Corpuscular Hemoglobin 30 pg (27-31); Mean Corpuscular Volume 88 fL (80-94); Mean Platelet Volume 9.2 fL (7.4-10.4); Nucleated Red Blood Cells % 0.1; Platelet Count 216 10^3/uL (150-450); Red Blood Count 4.55 10^6 /uL (4.18-5.48); Red Cell Distribution Width 15 % (10-15); White Blood Count 7.6 10^3/uL (3.5-10.8)
--- NOTE | 2019-04-06 18:45 | ED ---
Skin Complaint - HPI Summary HPI Summary: 79 year old male presents with bruising for the past couple days. He states he has not injuried himself. He is on eliquis for valve replacement. He denies any blood in his stool. No nosebleeds. No headache. Denies any other symptoms. Has no pain. He is concerned about the amount of bruising as did not injure himself. - History of Current Complaint Chief Complaint: EDGeneral Time Seen by Provider: 04/06/19 18:07 Stated Complaint: "BRUISING ON A BLOOD THINER PER DAUGHTER" Pain Intensity: 0 - Additional Pertinent History Primary Care Physician: [id number] - Allergy/Home Medications Allergies/Adverse Reactions: Allergies Allergy/AdvReac Type Severity Reaction Status Date / Time No Known Allergies Allergy Verified 04/06/19 18:04 PMH/Surg Hx/FS Hx/Imm Hx Endocrine/Hematology History: Reports: Hx Anticoagulant Therapy Cardiovascular History: Reports: Hx Auto Implanted Cardiovert Defib, Hx Coronary Artery Disease - MILD, BLOCKAGE, ON MEDS, Hx Hypercholesterolemia, Hx Hypertension, Hx Pacemaker/ICD Denies: Other Cardiovascular Problems/Disorders Respiratory History: Denies: Other Respiratory Problems/Disorders GI History: Reports: Hx Gastroesophageal Reflux Disease, Hx Ulcer - 1983, HAD PARTIAL STOMACH REMOVED Denies: Other GI Disorders History: Reports: Other Problems/Disorders - enlarged prostate- sees Dr San Musculoskeletal History: Denies: Other Musculoskeletal History Sensory History: Reports: Hx Cataracts - Bilateral, Hx Contacts or Glasses Denies: Hx Glaucoma, Hx Hearing Aid Opthamlomology History: Reports: Hx Cataracts - Bilateral, Hx Contacts or Glasses Denies: Hx Glaucoma Neurological History: Denies: Other Neuro Impairments/Disorders - Surgical History Surgery Procedure, Year, and Place: 1983, PARTIAL STOMACH REMOVED, [facility] [place]. 2 FACIAL MELANOMAS REMOVED, 02/2012, 2006, [facility] [place] Hx Anesthesia Reactions: No Infectious Disease History: No Infectious Disease History: Denies: Traveled Outside the [place] in Last 30 Days - Family History Known Family History: Positive: Hypertension - Social History Alcohol Use: Occasionally Alcohol Amount: "a glass of beer every 2-3 weeks" Substance Use Type: Reports: None Smoking Status (MU): Never Smoked Tobacco Amount Used/How Often: 1 ppd for 15 years Review of Systems Negative: Fever Negative: Chest Pain Negative: Shortness Of Breath Positive: Bruising All Other Systems Reviewed And Are Negative: Yes Physical Exam Triage Information Reviewed: Yes Vital Signs On Initial Exam: Initial Vitals Temp Pulse Resp BP Pulse Ox 98.4 F 80 16 178/94 96 04/06/19 18:02 04/06/19 18:02 04/06/19 18:02 04/06/19 18:02 04/06/19 18:02 Vital Signs Reviewed: Yes Appearance: Positive: Well-Appearing Skin: Positive: Warm, Dry Head/Face: Positive: Normal Head/Face Inspection Eyes: Positive: Normal, Conjunctiva Clear ENT: Positive: Pharynx normal Respiratory/Lung Sounds: Positive: Clear to Auscultation, Breath Sounds Present Cardiovascular: Positive: Normal, RRR Musculoskeletal: Positive: Normal Neurological: Positive: Normal Psychiatric: Positive: Normal Diagnostics - Vital Signs Vital Signs Temp Pulse Resp BP Pulse Ox 04/06/19 18:02 98.4 F 80 16 178/94 96 - Laboratory Lab Results: Lab Results 04/06/19 Range/Units 18:26 WBC 7.6 (3.5-10.8) 10^3/uL RBC 4.55 (4.18-5.48) 10^6 /uL Hgb 13.5 L (14.0-18.0) g/dL Hct 40 L (42-52) % MCV 88 (80-94) fL MCH 30 (27-31) pg MCHC 34 (31-36) g/dL RDW 15 (10-15) % Plt Count 216 (150-450) 10^3/uL MPV 9.2 (7.4-10.4) fL Neut % (Auto) 66.7 % Lymph % (Auto) 18.9 % [place] % (Auto) 10.1 % Eos % (Auto) 3.7 % Baso % (Auto) 0.6 % Absolute Neuts (auto) 5.1 (1.5-7.7) 10^3/ul Absolute Lymphs (auto) 1.4 (1.0-4.8) 10^3/ul Absolute Monos (auto) 0.8 (0-0.8) 10^3/ul Absolute Eos (auto) 0.3 (0-0.6) 10^3/ul Absolute Basos (auto) 0.0 (0-0.2) 10^3/ul Absolute Nucleated RBC 0.0 10^3/ul Nucleated RBC % 0.1 Result Diagrams: 04/06/19 18:26 04/06/19 18:26 Lab Statement: Any lab studies that have been ordered have been reviewed, and results considered in the medical decision making process. Course/Dx - Course Course Of Treatment: 79 year old male presents with bruising for the past couple days. He states he has not injuried himself. He is on eliquis for valve replacement. He denies any blood in his stool. No nosebleeds. No headache. Denies any other symptoms. Has no pain. He is concerned about the amount of bruising as did not injure himself. On exam has 2 large ecchymosis one on each arm. lungs CTA. Hemoglobin 13 which has been prior. Platelets normal. Told to follow-up with primary. Patient understands agrees with plan. - Differential Diagnoses - Skin Complaint Differential Diagnoses: Other - thrombocytopenia, blood loss, injury - Diagnoses Provider Diagnoses: Abnormal bruising Discharge - Sign-Out/Discharge Documenting (check all that apply): Patient Departure Patient Received Moderate/Deep Sedation with Procedure: No - Discharge Plan Condition: Good Disposition: HOME Patient Education Materials: Contusion in Adults (ED) Referrals: Fredy Lester MD [Primary Care Provider] - Gold Atkinson MD [Medical Doctor] - Additional Instructions: follow up with primary If continue to have issues follow up with hematology Return to ED if develop any new or worsening symptoms - Billing Disposition and Condition Condition: GOOD Disposition: Home
[2019-04-06 18:48] LABS: Activated Partial Thrombo Time 32.5 seconds (26.0-38.0)
[2019-04-06 18:56] LABS: C Reactive Protein 1.78 mg/L (<8.01)
[2019-04-06 19:33] VITALS: BP 152/95
[2019-04-06 19:38] LABS: BUN/Creatinine Ratio 20.6 (8-20); Calcium 9.1 mg/dL (8.6-10.3); EGFR African American 90.8 (>60); Potassium 4.1 mmol/L (3.5-5.0)
== END 2019-04-06 19:28 | disposition home or self-care (01) ==
LOC: ED 17:57
DX: T14.8XXA Other injury of unspecified body region, initial encounter (principal); X58.XXXA Exposure to other specified factors, initial encounter; Y92.9 Unspecified place or not applicable; Z79.01 Long term (current) use of anticoagulants; Z95.4 Presence of other heart-valve replacement; I25.10 Atherosclerotic heart disease of native coronary artery without angina pectoris; Z95.810 Presence of automatic (implantable) cardiac defibrillator; I10 Essential (primary) hypertension; K21.9 Gastro-esophageal reflux disease without esophagitis
CPT/HCPCS: 36415; 80048; 85025; 85610; 85730; 86140; 99282

== ENCOUNTER 2019-07-12 10:16 | Observation (INO) | payer MEDICARE ==
[2019-07-12 10:58] LABS: ABS Eosinophils 0.2 10^3/ul (0-0.6); ABS Lymphocytes 0.8 10^3/ul (1.0-4.8); ABS Monocytes 0.6 10^3/ul (0-0.8); ABS Neutrophils 6.9 10^3/ul (1.5-7.7); Hematocrit 40 % (42-52); Hemoglobin 13.3 g/dL (14.0-18.0); Lymphocyte % 9.7 %; Mean Corpuscular HGB Conc 33 g/dL (31-36); Mean Corpuscular Hemoglobin 29 pg (27-31); Mean Corpuscular Volume 87 fL (80-94); Mean Platelet Volume 9.3 fL (7.4-10.4); Nucleated Red Blood Cells % 0.2; Platelet Count 211 10^3/uL (150-450); Red Blood Count 4.61 10^6 /uL (4.18-5.48); Red Cell Distribution Width 15 % (10-15); White Blood Count 8.5 10^3/uL (3.5-10.8)
[2019-07-12 11:12] LABS: Albumin 4.2 g/dL (3.2-5.2); Albumin/Globulin Ratio 1.4 (1-3); BUN/Creatinine Ratio 13.1 (8-20); Calcium 9.4 mg/dL (8.6-10.3); EGFR African American 69.7 (>60); EGFR Non-African American 57.6 (>60); Globulin 2.9 g/dL (2-4); Magnesium 2.3 mg/dL (1.9-2.7); Potassium 4.4 mmol/L (3.5-5.0); Total Bilirubin 0.8 mg/dL (0.2-1.0); Total Protein 7.1 g/dL (6.4-8.9)
--- NOTE | 2019-07-12 11:30 | ED ---
Syncope/Near Syncope - HPI Summary HPI Summary: This patient is a 79 year old M arriving via ambulance to [facility] a chief complaint of near syncope since 07/12/19 at 1030. Patient states that he was working out this morning when he felt warm, light headed, SOB and was diaphoretic. Patient states he sat down to recover. Reports feeling better approximately 30 minutes after resting. Patient denies chest pain at that time. Patient states that he has a pacemaker and two stents. The patient rates the pain 0/10 in severity. Symptoms aggravated by exertion. Symptoms alleviated by rest. He states he works out often up to an hour per day. Home Medications Medication Instructions Recorded Confirmed Type Atorvastatin* [Lipitor 40 MG*] 40 mg PO QPM 12/07/17 04/06/19 History Diltiazem CD CAP* [Cardizem CD 180 mg PO QAM 12/07/17 04/06/19 History CAP*] Aspirin 81 mg CHEW TAB* 81 mg PO DAILY 08/15/18 04/06/19 History Metoprolol Succinate XL TAB* 1 tab PO BEDTIME 08/15/18 04/06/19 History [Toprol XL TAB*] Multivit-Min/FA/Lycopen/Lutein 1 tab PO DAILY 08/15/18 04/06/19 History [Centrum Silver Men Tablet] Sotalol TAB* [Betapace 80 MG TAB*] 40 mg PO BID 08/15/18 04/06/19 History Ticagrelor* [Brilinta 90 MG*] 90 mg PO BID #60 tab 08/17/18 04/06/19 Rx Torsemide 5 mg PO QAM PRN #0 08/17/18 04/06/19 Rx Metoprolol Succinate XL TAB* 50 mg PO QAM 07/12/19 07/12/19 History [Toprol XL TAB*] Nitroglycerin TAB 0.4 MG* 0.4 mg SL Q5M PRN MDD 3 07/12/19 07/12/19 History Pantoprazole TAB * [Protonix TAB*] 40 mg PO DAILY 07/12/19 07/12/19 History Allergies Allergy/AdvReac Type Severity Reaction Status Date / Time No Known Allergies Allergy Verified 04/06/19 18:04 - History Of Current Complaint Chief Complaint: EDDizziness Time Seen by Provider: 07/12/19 10:21 Hx Obtained From: Patient Onset/Duration: Sudden Onset, Resolved Timing: Minutes - 20 minutes Context: Unwitnessed Activity At Onset: Other - working out with weights Associated Head Trauma: No Aggravating Factor(s): Nothing Alleviating Factor(s): Nothing Associated Signs And Symptoms: Diaphoresis, Shortness Of Breath - Allergies/Home Medications Allergies/Adverse Reactions: Allergies Allergy/AdvReac Type Severity Reaction Status Date / Time No Known Allergies Allergy Verified 04/06/19 18:04 Home Medications: Home Medications Metoprolol Succinate XL TAB* [Toprol XL TAB*] 50 mg PO QAM 07/12/19 [History Confirmed 07/12/19] Nitroglycerin TAB 0.4 MG* 0.4 mg SL Q5M PRN MDD 3 07/12/19 [History Confirmed ] Pantoprazole TAB * [Protonix TAB*] 40 mg PO DAILY 07/12/19 [History Confirmed ] PMH/Surg Hx/FS Hx/Imm Hx Endocrine/Hematology History: Reports: Hx Anticoagulant Therapy Cardiovascular History: Reports: Hx Auto Implanted Cardiovert Defib, Hx Coronary Artery Disease - MILD, BLOCKAGE, ON MEDS, Hx Hypercholesterolemia, Hx Hypertension, Hx Pacemaker/ICD Denies: Other Cardiovascular Problems/Disorders Respiratory History: Denies: Other Respiratory Problems/Disorders GI History: Reports: Hx Gastroesophageal Reflux Disease, Hx Ulcer - 1983, HAD PARTIAL STOMACH REMOVED Denies: Other GI Disorders History: Reports: Other Problems/Disorders - enlarged prostate- sees Dr San Musculoskeletal History: Denies: Other Musculoskeletal History Sensory History: Reports: Hx Cataracts - Bilateral, Hx Contacts or Glasses Denies: Hx Glaucoma, Hx Hearing Aid Opthamlomology History: Reports: Hx Cataracts - Bilateral, Hx Contacts or Glasses Denies: Hx Glaucoma Neurological History: Denies: Other Neuro Impairments/Disorders - Surgical History Surgical History: Yes Surgery Procedure, Year, and Place: 1983, PARTIAL STOMACH REMOVED, [facility] [place]. 2 FACIAL MELANOMAS REMOVED, 02/2012, 2006, [facility] [place] Hx Anesthesia Reactions: No Infectious Disease History: No Infectious Disease History: Denies: Traveled Outside the US in Last 30 Days - Family History Known Family History: Positive: Hypertension - Social History Alcohol Use: Occasionally Alcohol Amount: "a glass of beer every 2-3 weeks" Substance Use Type: Reports: None Hx Tobacco Use: Yes Smoking Status (MU): Former Smoker Amount Used/How Often: 1 ppd for 15 years Review of Systems Positive: Skin Diaphoresis Negative: Chest Pain Positive: Shortness Of Breath All Other Systems Reviewed And Are Negative: Yes Physical Exam - Summary Physical Exam Summary: Constitutional: Well-developed, Well-nourished, Alert. (-) Distressed Skin: Warm, Dry HENT: Normocephalic; Atraumatic Eyes: Conjunctiva normal Neck: Musculoskeletal ROM normal neck. (-) JVD, (-) Stridor, (-) Nuchal rigidity Cardio: Rhythm regular, rate normal, Heart sounds normal; Intact distal pulses; Radial pulses are 2+ and symmetric. (-) Murmur Pulmonary/Chest wall: Effort normal. (-) Respiratory distress, (-) Wheezes, (-) Rales Abd: Soft, (-) tenderness, (-) Distension, (-) Guarding, (-) Rebound Musculoskeletal: (-) Edema Lymph: (-) Cervical adenopathy Neuro: Alert, Oriented x3 Psych: Mood and affect Normal Triage Information Reviewed: Yes Vital Signs On Initial Exam: Initial Vitals Pulse Resp Pulse Ox 64 16 97 07/12/19 10:22 07/12/19 10:22 07/12/19 10:22 Vital Signs Reviewed: Yes Diagnostics - Vital Signs Vital Signs Temp Pulse Resp BP Pulse Ox 07/12/19 10:30 63 17 98 07/12/19 10:27 72 131/69 07/12/19 10:25 98.8 F 65 16 140/71 97 07/12/19 10:22 64 16 97 - Laboratory Lab Results: Lab Results 07/12/19 07/12/19 07/12/19 Range/Units 10:44 10:44 10:44 WBC 8.5 (3.5-10.8) 10^3/uL RBC 4.61 (4.18-5.48) 10^6 /uL Hgb 13.3 L (14.0-18.0) g/dL Hct 40 L (42-52) % MCV 87 (80-94) fL MCH 29 (27-31) pg MCHC 33 (31-36) g/dL RDW 15 (10-15) % Plt Count 211 (150-450) 10^3/uL MPV 9.3 (7.4-10.4) fL Neut % (Auto) 80.7 % Lymph % (Auto) 9.7 % [place] % (Auto) 7.1 % Eos % (Auto) 2.0 % Baso % (Auto) 0.5 % Absolute Neuts (auto) 6.9 (1.5-7.7) 10^3/ul Absolute Lymphs (auto) 0.8 L (1.0-4.8) 10^3/ul Absolute Monos (auto) 0.6 (0-0.8) 10^3/ul Absolute Eos (auto) 0.2 (0-0.6) 10^3/ul Absolute Basos (auto) 0.0 (0-0.2) 10^3/ul Absolute Nucleated RBC 0.0 10^3/ul Nucleated RBC % 0.2 INR (Anticoag Therapy) 1.00 (0.82-1.09) Sodium 137 (135-145) mmol/L Potassium 4.4 (3.5-5.0) mmol/L Chloride 107 (101-111) mmol/L Carbon Dioxide 23 (22-32) mmol/L Anion Gap 7 (2-11) mmol/L BUN 16 (6-24) mg/dL Creatinine 1.22 H (0.67-1.17) mg/dL Est GFR ( Amer) 69.7 (>60) Est GFR (Non-Af Amer) 57.6 (>60) BUN/Creatinine Ratio 13.1 (8-20) Glucose 157 H (70-100) mg/dL Calcium 9.4 (8.6-10.3) mg/dL Magnesium 2.3 (1.9-2.7) mg/dL Total Bilirubin 0.80 (0.2-1.0) mg/dL AST 29 (13-39) U/L ALT 23 (7-52) U/L Alkaline Phosphatase 112 H (34-104) U/L Troponin I 0.00 (<0.04) ng/mL Total Protein 7.1 (6.4-8.9) g/dL Albumin 4.2 (3.2-5.2) g/dL Globulin 2.9 (2-4) g/dL Albumin/Globulin Ratio 1.4 (1-3) Result Diagrams: 07/12/19 10:44 07/12/19 10:44 Lab Statement: Any lab studies that have been ordered have been reviewed, and results considered in the medical decision making process. - Radiology Chest Xray Radiology Interpretation Completed By: Radiologist Summary of Radiographic Findings: Chest Xray reveals, per radiologist, IMPRESSION:No acute cardiopulmonary process by radiograph. ED Physician has reviewed this report. - EKG 1046 Cardiac Rate: Other Rate - Atrial Pace EKG Rhythm: - Atrial Pace 61 EKG Comparison: No Significant Change Summary of EKG Findings: An EKG at 1046 reveals Atrial paced rhythm at 61 bpm, nml axis, nml intervals. No STEMI. No acute changes. No significant changes compared to 08/17/18. Re-Evaluation - Re-Evaluation First Eval Re-Evaluation Time: 11:20 Change: Improved Comment: Dr. Jovel discussed patient's case with Dr. Gar. Dr. Gar recommends 2 Troponin and that patient should follow up with Dr. Quispe and limit his physical activity. Second Eval Re-Evaluation Time: 11:36 Change: Improved Comment: Dr. Jovel spoke to patient and patient is agreeable to stay for further observation. Course/Dx Course Of Treatment: 79-year-old male with a history of coronary artery disease , paroxysmal Afib, ejection fraction 45-50%, pacemaker who presents with episode of near syncope. Orthostatics: OK. Cardiac cath 2018 LAD drug-eluting stent to Dr. Araujo. Patient w diffuse CAD , considered for bypass. DDx includes: Arrhythmia, vasovagal syncope, ACS. Patient is high-risk for cardiac cause of syncope. Troponin negative 1, EKG paced. Patient states he feels better. D/w cardiology who states patient could follow up outpatient, however I feel that he would benefit from inpatient observation and telemetry monitoring. - Diagnoses Provider Diagnoses: Near syncope - Physician Notifications Discussed Care of Patient With: Edel Talbert - Hospitalist Time Discussed With Above Provider: 11:36 Instructed by Provider To: Other - Dr. Talbert accepts patient for admission at this time. Discharge ED - Sign-Out/Discharge Documenting (check all that apply): Patient Departure - admitted Patient Received Moderate/Deep Sedation with Procedure: No - Discharge Plan Condition: Stable Disposition: ADMITTED TO [facility] - Billing Disposition and Condition Condition: STABLE Disposition: Admitted to [facility] - Attestation Statements Document Initiated by Violet: Yes Documenting Scribe: Janice Sousa Provider For Whom Violet is Documenting (Include Credential): Dr. Codi Jovel MD Scribe Attestation: I, Janice Sousa , scribed for Dr. Codi Jovel MD on 07/12/19 at 2052. Scribe Documentation Reviewed: Yes Provider Attestation: The documentation as recorded by the scribe, Janice Sousa accurately reflects the service I personally performed and the decisions made by me, Dr. Codi Jovel MD Status of Scribe Document: Viewed
[2019-07-12] MEDS ORDERED: Ondansetron INJ* 2 MG/ML VIAL IV PRN (12:32)
[2019-07-12] MEDS ORDERED: Nitroglycerin TAB 0.4 MG* 0.4 MG TAB SL PRN (12:32)
[2019-07-12] MEDS ORDERED: Acetaminophen TAB* 325 MG PO PRN (12:32)
[2019-07-12] MEDS: NS 0.9% 1000 ML** 1,000 ML IV SCH ×2 (14:21→23:00)
--- NOTE | 2019-07-12 14:22 | HP ---
CC: Dr. Fredy Lester; Dr. Lloyd Quispe * ADMISSION HISTORY AND PHYSICAL: DATE OF ADMISSION: 07/12/19 PRIMARY CARE PROVIDER: Dr. Fredy Lester. MY ATTENDING WHILE IN THE HOSPITAL: Dr. Edel Talbert.* (DICTATED BY SHAYNE ZAMORA) OUTPATIENT COMMERCIAL DRIVER'S LICENSE DRIVER: Dr. Lloyd Quispe. CHIEF COMPLAINT: Dizziness times approximately 10 minutes. HISTORY OF PRESENT ILLNESS: Mr. Guevara is a 79-year-old male with past medical history significant for severe coronary artery disease with occluded RCA and recent stent in the proximal LAD for 90% stenosis as well as high blood pressure , high cholesterol, sick sinus syndrome, and paroxysmal atrial fibrillation who presents to the emergency department after today he was exercising at [employer]. He was able to exercise for approximately an hour at moderate intensity with frequent breaks, but on his last machine of the day, he was exercising more vigorously and then after several reps, began to feel dizzy , short of breath, had some nausea, some sweatiness, and felt as if he was going to pass out. He stopped exercising, but the feeling did not go away. He then sat down, the feeling remained unchanged. He then laid down, does not feel that he passed out. This did not resolve immediately as he laid down, but EMS was activated, and by the time he was taken in by EMS, he felt essentially back to his baseline. The patient denies any decrease in his oral intake. The patient has been attempting to drink quite a bit of water. The patient has never had anything like this before causing him to come to the hospital. The patient denies any overt chest pain. No swelling in his legs. No fevers, chills, nausea, vomiting, abdominal pain, or diarrhea. The patient has been taking all of his medications. The patient has not passed out recently. The patient has never had a heart attack before. The patient in the emergency department was found not to be orthostatic, had a slightly elevated creatinine above his baseline. No other significant laboratory abnormalities. The patient had a nonischemic EKG. The patient had no abnormalities on telemetry, and we were asked to evaluate the patient for admission to the hospital due to concern for presyncope. PAST MEDICAL HISTORY: Coronary artery disease; hypertension, hyperlipidemia; peptic ulcer disease; melanoma, sick sinus syndrome; paroxysmal atrial fibrillation; history of reduced ejection fraction, now resolved; occluded nondominant RCA; recent stent placement in LAD. PAST SURGICAL HISTORY: Partial gastrectomy, catheterization x2, multiple melanoma removal, pacemaker, TURP in 2009. MEDICATIONS: 1. Diltiazem 240 mg p.o. daily. 2. Atorvastatin 80 mg p.o. daily. 3. Metoprolol succinate 50 mg p.o. b.i.d. 4. Multivitamin 1 tab p.o. daily. 5. Sotalol 40 mg p.o. b.i.d. 6. Aspirin 81 mg p.o. daily. 7. Brilinta 90 mg p.o. b.i.d. 8. Torsemide 5 mg p.o. daily as needed. 9. Pantoprazole 40 mg p.o. daily. 10. Nitroglycerin 0.4 mg sublingually q.5 minutes as needed for chest pain. ALLERGIES: No known drug allergies. FAMILY HISTORY: The patient's father of liver disease. The patient's mother of heart disease. The patient had a brother who of complications of a fall. SOCIAL HISTORY: The patient quit smoking 40 years ago. The patient drinks rare alcohol. The patient denies illicit drug use. 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 The patient is and has 3 children. The patient's surrogate decision maker will be his , Natividad Agrawal. REVIEW OF SYSTEMS: A 10-point review of systems was reviewed and was negative except as above in the HPI. PHYSICAL EXAMINATION GENERAL: The patient is a 79-year-old male who appears stated age and is sitting comfortably in the bed, in no acute distress. VITAL SIGNS: At the time of evaluation, temperature 98.8, pulse rate 61, respiratory rate 20, oxygen saturation 97% on room air, blood pressure 117/76. Orthostatic vital signs lying down 140/71, sitting 129/66, standing 131/69. HEENT: Head: Normocephalic, atraumatic. Sclerae anicteric. No conjunctival injection. Nasal mucosa moist. Oral mucosa moist. There is no pharyngeal erythema, discharge, or exudate. NECK: Supple, nontender. No lymphadenopathy. No carotid bruits auscultated. No JVD. RESPIRATORY: Clear to auscultation bilaterally. No wheezes, rales, or rhonchi. Good air exchange bilaterally. CARDIAC: Regular rate and rhythm. No clicks, murmurs, gallops, or rubs. Pulses are 2+ in the bilateral dorsalis pedis, posterior tibialis and radial areas. ABDOMEN: Soft, nontender, nondistended. Bowel sounds present and normoactive in all 4 quadrants. No hepatosplenomegaly. There are no abdominal bruits auscultated. No hepatojugular reflux. GENITOURINARY: No suprapubic or CVA tenderness. NEUROLOGIC: Cranial nerves II through XII intact. No focal deficits. Alert and oriented x3. PSYCHIATRIC: Pleasant and cooperative. SKIN: Clean, dry and intact. No rashes. DIAGNOSTIC STUDIES/LAB DATA: White blood cell count 8.5, hemoglobin 13.3, platelet count 211. INR 1.0. Sodium 137, potassium 4.4, chloride 107, carbon dioxide 23, anion gap 6, BUN 16, creatinine 1.22, glucose 157, calcium 9.4, magnesium 2.3. Bilirubin 0.8, AST 29, ALT 23, alkaline phosphatase 112. Troponin I 0.00. Protein 7.1, albumin 4.2, globulin 2.9. Studies: EKG shows paced complexes, rate 61, QTc of 468, no ST segment elevation or depression, no T-wave inversions, normal axis, and no significant changes from previous exam. Chest x-ray with no acute cardiopulmonary disease. ASSESSMENT AND PLAN: Impression: Mr. Guevara is a 79-year-old male with past medical history significant for coronary artery disease, status post stenting; hypertension; hyperlipidemia; sick sinus syndrome, status post pacemaker; and paroxysmal atrial fibrillation who presents to the emergency department with approximately 10-minute episode of dizziness, shortness of breath, and diaphoresis. The patient will be admitted to the hospital for concern for myocardial infarction versus arrhythmia. 1. Episode of dizziness. The differential for the patient's dizziness could be related to orthostatic hypotension in the setting of exercising, being on multiple rate control agents which can cause orthostatic hypotension and possible dehydration in the setting of increased creatinine. The patient will be given fluids and have orthostatic vital signs rechecked in the morning. Also on the differential includes atrial fibrillation, which he has previously not tolerated well. His pacemaker will be interrogated and cardiology consultation will be considered if this represented an episode of atrial fibrillation with rapid ventricular response. The patient also has known and extensive coronary artery disease. The patient has never had a heart attack and cannot compare whether this is similar to previous heart attacks. The patient will be continued on his aspirin and his Brilinta and have a nuclear stress test in the morning to assess for any areas of ischemia may have been exacerbated by his exercising. The patient is on nitroglycerin as needed. The patient will have his troponins trended and repeat EKG in the morning. The patient's LEWIS risk score is 3. 2. Coronary artery disease. Continue Brilinta, aspirin, and statin as above. 3. Hypertension. The patient is currently normotensive. Continue the patient' s home diltiazem, metoprolol, and sotalol. 4. Hyperlipidemia. Continue statin. 5. Paroxysmal atrial fibrillation. Continue sotalol, metoprolol, and diltiazem as above. Interrogate pacemaker. The patient is not currently anticoagulated given the low burden of atrial fibrillation on recent pacemaker interrogation. 6. DVT prophylaxis. Lovenox subcu. 7. FEN. The patient will have a heart healthy diet without caffeine. The patient will receive 1 L of fluid. The patient will be n.p.o. after midnight. 8. Disposition: The patient will be admitted to observation in the hospital. 9. Code status. The patient would like to be a full code. TIME SPENT: Approximately 60 minutes was spent on the admission of this admission, 30 of which were spent [id number] with the patient obtaining history and physical and discussing treatment plan. This plan has been discussed with my attending, Dr. Edel Talbert, and she is in agreement. SHAYNE ZAMORA [id number]/CPS #: [id number] [email or web address]
[2019-07-12] MEDS: Enoxaparin(*) 40 MG/0.4 ML SYR SUBCUT SCH (14:23)
[2019-07-12] MEDS: Atorvastatin* 80 MG TAB PO SCH (17:53)
[2019-07-12] MEDS ORDERED: Metoprolol Succinate XL TAB* 50 MG PO SCH (21:00)
[2019-07-12] MEDS: Sotalol TAB* 80 MG PO SCH (21:05)
[2019-07-12] MEDS: Ticagrelor* 90 MG TAB PO SCH (21:06)
[2019-07-13 07:15] LABS: BUN/Creatinine Ratio 15.3 (8-20); EGFR African American 77.7 (>60); EGFR Non-African American 64.2 (>60); HDL Cholesterol 57.4 mg/dL; Potassium 3.7 mmol/L (3.5-5.0)
[2019-07-13] MEDS ORDERED: Aspirin 81 mg CHEW TAB* 81 MG TAB.CHEW PO SCH (09:00)
[2019-07-13] MEDS ORDERED: Pantoprazole TAB * 40 MG TAB PO SCH (09:00)
[2019-07-13] MEDS ORDERED: Metoprolol Succinate XL TAB* 50 MG PO SCH (09:00)
[2019-07-13] MEDS ORDERED: Influenza VAC *QUAD* 2019-20* 0.5 ML SYRINGE IM ONE (09:00)
[2019-07-13] MEDS ORDERED: Diltiazem CD CAP* 240 MG PO SCH (09:00)
[2019-07-13] MEDS ORDERED: Regadenoson* 0.4 MG/5 ML SYRINGE ONE (09:27)
[2019-07-13] MEDS ORDERED: Aminophylline IV* 25 MG/ML 10 ML VIAL ONE (09:28)
[2019-07-13] MEDS: Sotalol TAB* 80 MG PO SCH (11:09)
[2019-07-13] MEDS: Enoxaparin(*) 40 MG/0.4 ML SYR SUBCUT SCH (11:10)
[2019-07-13] MEDS: Ticagrelor* 90 MG TAB PO SCH (11:10)
[2019-07-13] MEDS: Atorvastatin* 80 MG TAB PO SCH (17:10)
[2019-07-13 17:30] VITALS: BP 115/59
--- NOTE | 2019-07-13 17:46 | ECHO ---
*[facility]* [place] [address] Fax #: [phone] Transthoracic Echocardiogram Patient: Kiko Guevara : 1940 Study Date: 07/13/2019 Age: 79 Gender: M HR: 70 bpm Height: 63 in /160 cm BSA: 1.72 m^2 Weight: 150.7 lb /68.5 kg BMI: 26.7 kg/m^2 *Applications Trainer: Micheline Oh RDCS RN *Referring Physician: * Ldyia Campbell *Reading Physician: * Rey Gar MD Indications: Syncope. History: Atrial fibrillation. Coronary artery disease with PCI to left anterior descending coronary. Risk factors: Former tobacco use. Hypertension. Dyslipidemia. Labs, prior tests, procedures, and surgery: Catheterization. Permanent pacemaker system implantation. Conclusions Summary: - Left ventricle: The cavity size is normal. Wall thickness is normal. Systolic function is normal. The estimated ejection fraction is 55-60%. Wall motion is normal; there are no regional wall motion abnormalities. - Right ventricle: The cavity size is normal. Pacer wire noted in the right ventricle. Systolic function is normal. - Left atrium: The atrium is normal in size. - Pulmonary arteries: Systolic pressure is mildly increased, estimated to be 39 mm Hg. - No more than mild valvular regurgitation noted. Recommendations: Compared to prior study from 10/2018, findings are similar. Study data: Transthoracic echocardiogram. Procedure: Transthoracic echocardiography was performed. Image quality was fair. The study was technically limited due to Smoking history. Complete 2D, spectral Doppler, and color flow Doppler. Location: Bedside. Patient status: Observation. Patient room number: 445-01. Rhythm: Normal sinus rhythm. Findings Left ventricle: The cavity size is normal. Wall thickness is normal. Systolic function is normal. The estimated ejection fraction is 55-60%. Wall motion is normal; there are no regional wall motion abnormalities. Left ventricular diastolic function parameters are normal. Right ventricle: The cavity size is normal. Pacer wire noted in the right ventricle. Systolic function is normal. Left atrium: The atrium is normal in size. Right atrium: The atrium is normal in size. Pacer wire noted in right atrium. Mitral valve: The leaflets are mildly thickened. There is no evidence of stenosis. There is mild regurgitation. Aortic valve: The valve is trileaflet. The leaflets are mildly thickened. There is no evidence of stenosis. There is trace to mild regurgitation. Tricuspid valve: The valve is structurally normal. There is no evidence of stenosis. There is mild regurgitation. Pulmonic valve: Not well visualized. There is no evidence of stenosis. There is no significant regurgitation. Aorta: Aortic root: The aortic root is not dilated. Ascending aorta: The ascending aorta is not dilated. Aortic arch: The aortic arch is not dilated. Pericardium: There is no pericardial effusion. Pulmonary arteries: Not well visualized. Systolic pressure is mildly increased, estimated to be 39 mm Hg. Systemic veins: Inferior vena cava: Not visualized. Measurements Left ventricle Value Ref Aortic valve Value Ref JALEN, LAX (L) 3.5 cm 4.2 - Flavio diam, ED 2.4 cm ---- 5.8 Flavio diam/bsa, ED 1.4 cm/m^2 ---- ESD, LAX 3.2 cm 2.5 - Peak v, S 0.92 m/sec ---- 4.0 VTI, S 20.6 cm ---- FS, LAX (L) 9 % 25 - 43 Mean grad, S 2.0 mm Hg ---- PW, ED 0.7 cm 0.6 - Peak grad, S 3.0 mm Hg ---- 1.0 LVOT/AV, VTI ratio 0.92 ---- IVS/PW, ED 1.32 -------- E', lat flavio, TDI 11.4 cm/sec >=10.0 Mitral valve Value Re f E/e', lat flavio, TDI 8 -------- Peak E 0.93 m/sec ---- E', med flavio, TDI 8.5 cm/sec >=7.0 Peak A 0.54 m/sec -- -- E/e', med flavio, TDI 11 -------- Decel time 211 ms ---- E', avg, TDI 10.0 cm/sec -------- Peak grad, D 3.5 mm Hg ---- E/e', avg, TDI 9 <=14 Peak E/A ratio 1.7 -- -- LVOT Value Ref Pulmonic valve Value Ref Peak liu, S 0.95 m/sec -------- Peak v, S 0.61 m/sec ---- VTI, S 18.9 cm -------- Peak grad, S 1.0 mm Hg ---- Mean grad, S 2 mm Hg -------- Tricuspid valve Value Ref Ventricular septum Value Ref Peak RV-RA grad, S 31 mm Hg ---- IVS, ED 1.0 cm 0.6 - Max TR liu 2.8 m/sec ---- 1.0 Aortic root Value Ref Right ventricle Value Ref Root diam 3.2 cm <3.9 JALEN, LAX 2.8 cm -------- JALEN minor ax, A4C 3.3 cm 1.9 - Ascending aorta Value Ref mid 3.5 AAo AP diam, S 3.0 cm ---- Pressure, S 39 mm Hg -------- Aortic arch Value Ref Left atrium Value Ref Arch diam 2.4 cm ---- ML dim, A4C 4.9 cm -------- SI dim, A4C 4.4 cm -------- Decending aorta Value Ref Vol/bsa, ES, 1-p 28 ml/m^2 12 - 37 Kenneth peak liu 0.58 m/sec ---- A4C Vol/bsa, ES, A/L 27 ml/m^2 16 - 34 Pulmonary artery Value Ref Pressure, S 39.0 mm Hg ---- Right atrium Value Ref SI dim, ES 5.1 cm 3.4 - 5.3 ML dim, ES, A4C 3.3 cm 2.6 - 4.4 SI dim, ES, A4C 5.1 cm 3.4 - 5.3 SI dim/bsa, ES, A4C 2.9 cm/m^2 1.8 - 3.0 Estimated RAP 8 mm Hg -------- Legend: (L) and (H) mukund values outside specified reference range. Prepared and electronically signed by Rey Gar MD 07/13/2019 17:45
--- NOTE | 2019-07-13 23:56 | DS ---
DISCHARGE SUMMARY: DATE OF ADMISSION: 07/12/19 DATE OF DISCHARGE: 07/13/19 PRIMARY DIAGNOSES: 1. Presyncope. 2. Mild dehydration. SECONDARY DIAGNOSES: 1. Coronary artery disease. 2. Hypertension. 3. Hyperlipidemia. 4. Peptic ulcer disease. 5. Melanoma. 6. Sick sinus syndrome. 7. Paroxysmal atrial fibrillation. 8. Occluded nondominant right coronary artery. 9. Recent stent placement in the left anterior descending for 90% stenosis. 10. Cardiac catheterization x2. 11. Multiple melanoma removal. 12. Pacemaker placement. 13. Transurethral resection of the prostate in 2009. 14. Partial gastrectomy. HOSPITAL COURSE: A 79-year-old male with past medical history of severe coronary artery disease with occluded RCA and recent stent in the proximal LAD for 90% stenosis; high blood pressure; hyperlipidemia; sick sinus syndrome; paroxysmal atrial fibrillation, presented to the ER. While he was exercising at [employer], he was able to exercise for about an hour at moderate intensity with frequent breaks, but on his last machine of the day, he was exercising more vigorously then after several reps, began to feel dizzy, short of breath, had some nausea, sweatiness, and felt like he was going to pass out. He stopped exercising and came to the ER for further evaluation. The patient's creatinine was noted to be mildly elevated and the patient was hydrated in the hospital. The patient's symptoms have resolved. In light his significant coronary artery disease and his symptoms on treadmill, the patient underwent nuclear stress test, which showed that his ejection fraction was around 67%. No significant focal perfusion defects were seen. There was no evidence of infarct or ischemia. The patient also had his pacer interrogated, full report available in chart, which showed normal pacemaker function. The patient's overnight telemetry monitoring also did not show any significant arrhythmia and showed a paced rhythm. The patient also had an echocardiogram to rule out aortic stenosis or other etiology that could be contributing to syncope as the patient has not had a recent echocardiogram, this showed that his EF was 55% to 60%, wall motion normal with no regional wall motion abnormalities, also did not have any evidence of aortic stenosis or significant valvular disease. The patient's symptoms have also resolved through his hospital stay and the patient feels well and wants to go home at this time. The patient will be discharged home. Please note on pacemaker interrogation, the patient was not noted to have any episodes of atrial fibrillation as well. MEDICATIONS: No changes to the patient's medications have been made at this time and his home medications being continued, which include: 1. Brilinta 90 mg p.o. b.i.d. 2. Multivitamin 1 tab p.o. daily. 3. Nitroglycerin 0.4 mg sublingual q.5 minutes p.r.n. for chest pain. 4. Metoprolol 50 mg q.a.m. and 50 mg q.p.m. as succinate. 5. Aspirin 81 mg daily. 6. Sotalol 40 mg p.o. b.i.d. 7. Diltiazem 240 mg p.o. a.m. 8. Lipitor 80 mg p.o. q.p.m. 9. Pantoprazole 40 mg p.o. daily. LABORATORY DATA: Labs at time of discharge, WBC 8.5, hemoglobin 13.1, hematocrit 40, platelets noted to be 211. Sodium 139, potassium 3.7, chloride 108, CO2 of 22, BUN 17, creatinine 1.1. IMAGING: During hospital stay, chest x-ray showed no acute cardiopulmonary disease. EKG showed a paced rhythm. Nuclear stress test showed low risk and no evidence of infarct or ischemia. Transthoracic echocardiogram showed an ejection fraction of 55% to 60%, wall motion normal, systolic function normal, right atrium normal. Pulmonary artery pressure at 39 mmHg. No significant valvular abnormalities. Pacemaker interrogation showed no AF, mode switch for around 6 seconds had VT sinus x2, longest 3 to 4 seconds, rate near 200 beats per minute. Other episode , possible over sense involved some duration. EGM of 06/19/19 also printed. Overall, the patient was noted to have a normal pacemaker function and no changes were recommended. DISPOSITION: The patient to be discharged home. CONDITION: Stable. INSTRUCTIONS: 1. The patient to follow up with his PCP in a week. 2. The patient to follow up with his yard conductor, Dr. Quispe in 1 to 2 weeks. TIME SPENT: Total time spent on discharge is equal to 45 minutes. [id number]/CPS #: [id number] MTDD
== END 2019-07-13 20:12 | disposition home or self-care (01) ==
LOC: ED 10:16 → MEDTELE 12:32
PROVIDERS: ADMIT Hospitalist; ATTEND Internal Medicine
DX: R55 Syncope and collapse (principal); I25.10 Atherosclerotic heart disease of native coronary artery without angina pectoris; I48.0 Paroxysmal atrial fibrillation; Z95.0 Presence of cardiac pacemaker; I10 Essential (primary) hypertension; E78.5 Hyperlipidemia, unspecified; K27.9 Peptic ulcer, site unspecified, unspecified as acute or chronic, without hemorrhage or perforation; I49.5 Sick sinus syndrome; Z85.820 Personal history of malignant melanoma of skin; E78.00 Pure hypercholesterolemia, unspecified; Z87.891 Personal history of nicotine dependence; Z79.899 Other long term (current) drug therapy; Z79.82 Long term (current) use of aspirin
CPT/HCPCS: 36415; 71046; 78452; 80048; 80053; 80061; 83036; 83735; 84484; 85025; 85610; 90471; 90686; 93005; 93017; 93306; 96372; 99284; A9270-GY; A9502; G0008; G0378; J0280; J1650; J2785

== ENCOUNTER 2024-08-10 11:03 | Observation (INO) ==
[~2024-08-10 11:03] MED LIST changes: -Acetaminophen TAB* 325 MG PO PRN; -Buffered Lidocaine 0.9% SYRIN* 5 ML/SYR SYRINGE INTRADERM ONE; -Cyclopentolate 1% OPTH.SOL* 2 ML BTL ONE; -Ketorolac 0.5% OPHTH (NF) 0.5 % 5 ML BTL ONE; -Lidocaine 1% MPF* 2 ML VIAL ONE; -Lidocaine 2% EPI 1:200000 MPF* 20 ML VIAL ONE; +Midazolam 2 mg/2 ml VIAL 1 mg/ml 2 ml VIAL (2 mg) ONE; +Naloxone 0.4 mg VIAL 0.4 mg/ml 1 ml VIAL IV PRN; -Neomycin/Polymy/Dex OPTH.SUSP* MAXITROL 0.1% 5 ML ONE; +Ondansetron 4 mg VIAL 2 MG/ML 2 ml VIAL IV PRN; -Phenylephrine 2.5% OPTH.SOL* 2 ML BTL ONE; -Povidone Iodine 5% OPTH* 30 ML BTL ONE; -Proparacaine 0.5% OPHTH.SOL* 15 ML BTL ONE; +Propofol 10 mg/ml 100 ML BTL 1,000 MG/100 ML BTL ONE; -acetaZOLAMIDE TAB* 250 MG ONE; +fentaNYL 100 mcg/2 ml 50 MCG/ML VIAL IV PRN; +fentaNYL 100 mcg/2 ml 50 MCG/ML VIAL ONE
[2024-08-10] MEDS ORDERED: Tranexamic Acid 1 GM/100ML BAG 2,000 MG/200 ML BAG IV ONE (11:46)
[2024-08-10] MEDS ORDERED: ceFAZolin 2 GM PREMIX 2 GM/50 ML BAG ONE (11:46)
[2024-08-10 12:06] LABS: Rapid COVID-19 Molecular Undetected (Undetected)
[2024-08-10] MEDS ORDERED: Dexamethasone IV 4 MG/ML VIAL 1 ml VIAL ONE (12:32)
[2024-08-10] MEDS ORDERED: Midazolam 2 mg/2 ml VIAL 1 mg/ml 2 ml VIAL (2 mg) ONE (12:32)
[2024-08-10] MEDS ORDERED: ROPIVACAINE 5 MG/ML 30 ML BTL (0.5%) ONE ×2 (12:33→13:22)
[2024-08-10] MEDS ORDERED: HYDROmorphone 0.5 MG/0.5 ML SYRINGE ONE (14:04)
[2024-08-10] MEDS ORDERED: fentaNYL 100 mcg/2 ml 50 MCG/ML VIAL ONE (14:04)
[2024-08-10] MEDS ORDERED: Rocuronium 50 mg VIAL 10 mg/ml 5 ml VIAL (50 mg) ONE (14:08)
[2024-08-10] MEDS ORDERED: Sterile Water for Inj 10 ML ONE (14:20)
[2024-08-10] MEDS ORDERED: Morphine 2 MG/ML SYRINGE IV PRN (15:34)
[2024-08-10] MEDS ORDERED: Ondansetron 4 mg VIAL 2 MG/ML 2 ml VIAL IV PRN (15:34)
[2024-08-10] MEDS ORDERED: Calcium Carb (TUMS) 500 mg CHEW TAB PO PRN (15:34)
[2024-08-10] MEDS ORDERED: Lactulose 30 ml UDC PO PRN (15:34)
[2024-08-10] MEDS ORDERED: Magnesium Hydroxide LIQ 30 ML UDC PO PRN (15:34)
[2024-08-10] MEDS ORDERED: Ondansetron ODT 4 mg TAB 4 MG TAB PO PRN (15:34)
[2024-08-10] MEDS: Buffered Lidocaine 1% SYRIN 1 ml INTRADERM ONE (19:06)
[2024-08-10] MEDS: Lactated Ringers 1000 ml BAG 1,000 ML IV SCH ×2 (19:06→19:07)
[2024-08-10] MEDS: ceFAZolin 2 GM PREMIX 2 GM/50 ML BAG IV SCH (21:37)
[2024-08-10] MEDS: Cholecalciferol (VIT D3) 1,000 unit TAB PO SCH (21:39)
[2024-08-10] MEDS: Magnesium Hydroxide LIQ 30 ML UDC PO SCH (21:39)
[2024-08-11 06:24] LABS: Hematocrit 31.4 % (38-53); Hemoglobin 10.9 g/dL (13.2-16.3); Mean Platelet Volume 8.8 fL (7.5-11.2); Platelet Count 197 10^3/uL (150-450)
[2024-08-11 06:41] LABS: Calcium 8.7 mg/dL (8.6-10.3); Creatinine, Serum 0.84 mg/dL (0.67-1.17); Potassium 4.5 mmol/L (3.5-5.0); eGFR CKD-EPI 87.1 (>60)
[2024-08-11] MEDS: Vitamin THERAPEUTIC TAB PO SCH (09:15)
[2024-08-11 11:01] VITALS: BP 123/68
== END 2024-08-11 14:50 | disposition home or self-care (01) ==
LOC: SSU 11:03 → OR 11:03
PROVIDERS: ADMIT Orthopaedic Surgery Adult Reconstructive Orthopaedic Surgery; ATTEND Orthopaedic Surgery Adult Reconstructive Orthopaedic Surgery

== ENCOUNTER 2024-11-13 17:06 | Observation (INO) ==
[2024-11-13 19:29] LABS: ABS Basophils 0.1 10^3/uL (0.0-0.1); ABS Eosinophils 0.3 10^3/uL (0.0-0.5); ABS Lymphocytes 1.6 10^3/uL (1.0-4.8); ABS Monocytes 0.9 10^3/uL (0.0-1.1); ABS Neutrophils 6.8 10^3/uL (1.5-7.6); Eosinophil % 2.6 %; Hematocrit 37.6 % (38-53); Mean Corpuscular Hemoglobin 31.6 pg (27-33); Mean Corpuscular Hgb Conc 34.6 g/dL (31-36); Mean Corpuscular Volume 91.2 fL (80-97); Platelet Count 225 10^3/uL (150-450); Red Blood Count 4.12 10^6/uL (4.06-5.63); Red Cell Distribution Width 14.2 % (12-17); White Blood Count 9.6 10^3/uL (3.6-10.2)
[2024-11-13 20:02] LABS: Calcium 9.5 mg/dL (8.6-10.3); Creatinine, Serum 0.95 mg/dL (0.67-1.17); Potassium 4.4 mmol/L (3.5-5.0); eGFR CKD-EPI 79.9 (>60)
[2024-11-13] MEDS: Iohexol 350 (CONTRAST) 500 ML MDV IV ONE (21:36)
[2024-11-14] MEDS ORDERED: Psyllium PAK PO PRN (02:23)
[2024-11-14] MEDS ORDERED: Sulfur Hexaflouride MICROSPHR 25 MG VIAL IV PRN (02:25)
[2024-11-14] MEDS: Enoxaparin 40 MG/0.4 ML SYR SUBCUT SCH (04:15)
[2024-11-14 18:00] VITALS: BP 125/70
[2024-11-14] MEDS ORDERED: Cholecalciferol (VIT D3) 1,000 unit TAB PO SCH (21:00)
== END 2024-11-14 18:59 | disposition home or self-care (01) ==
LOC: EDHOLD 17:06 → ED 17:06 → SUATTDRO 23:57 → MEDTELE 11-14 01:43
PROVIDERS: ADMIT Internal Medicine; ATTEND Internal Medicine